=== PATIENT | male | born 1945 | race Two or more races ===

== ENCOUNTER 2024-02-01 19:36 | Inpatient (IN) | payer MEDICARE, MEDICAID, SELFPAY ==
[2024-02-01 19:37] VITALS: BMI 26.5
--- NOTE | 2024-02-01 19:40 | EKG_ITS ---
[facility] Test Date: 2024-02-01 Pat Name: MIK MONAE Department: Room: - Gender: Male Reflow Operator: : 1945 Requested By: Tremaine Jacobs Order Number: [id number] Reading MD: Tremaine Jacobs Measurements Intervals [place] Rate: 71 P: 30 SD: 161 QRS: -37 QRSD: 87 T: 64 QT: 381 QTc: 414 Interpretive Statements SINUS RHYTHM MARKED LEFT AXIS DEVIATION [QRS AXIS < -30] PATTERN CONSISTENT WITH PULMONARY DISEASE NONSPECIFIC T-WAVE ABNORMALITY Compared to ECG 09/14/2023 13:06:49 Ventricular premature complex(es) no longer present Intraventricular conduction delay no longer present T-wave abnormality still present /store/S0/[id number]/ecg/[id number].pdf
[2024-02-01 20:12] VITALS: BP 169/92; PULSE 76; RESP 18; TEMP 37; O2SAT 96
--- NOTE | 2024-02-01 20:34 | PC.NURSE ---
PT TO ROOM 18 AT THIS TIME, ASSUMED CARE.
--- NOTE | 2024-02-01 21:07 | EDNOTE_ITS ---
Altered Mental Status RME/HPI General Chief Complaint: Altered Mental Status Stated Complaint: AMS X 2DAYS Time Seen by Provider: 02/01/24 21:06 Arrival date/time: 02/01/24 19:36 RME / HPI RME / HPI narrative: DR. VALDEZ MAIN ED EVALUATION: 78 year old male presents to the Emergency Department with complaint of altered mental status; patient is delusional since yesterday and worse today. Unsure if patient fell today. Patient is restless and taking jiberish. Patient was talking to somebody in his imagination and he was seeing things that were not there. Denies any of the following: nausea, vomiting, diarrhea, fevers, chills, sweating, headache, chest pain, abdominal pain, UTI symptoms, cough, shortness of breath, or any other symptoms at this time. Galen, the patient's son, wants the patient placed in a [facility]. PMHx: Hypertension, hypercholesterolemia, Diabetes Mellitus Type 2, GERD. History of chronic renal failure but patient refuses to go to dialysis. History of right leg DVT and on Plavix. Social Hx: No tobacco, alcohol, or substance use. PCP is at [facility]. Code Status: DNR, DNI Related Data Home Medications ?Medication ?Instructions ?Recorded ?Confirmed atorvastatin 40 mg tablet 40 mg PO QPM 01/19/19 04/15/22 losartan 50 mg tablet 50 mg PO QDAY 01/19/19 04/15/22 sitagliptin phosphate 50 1 tab PO BID 01/19/19 04/15/22 mg-metformin 1,000 mg tablet (Marlisa) amlodipine 10 mg tablet 10 mg PO QDAY 08/12/20 04/15/22 clopidogrel 75 mg tablet 75 mg PO QDAY 08/12/20 04/15/22 furosemide 40 mg tablet 40 mg PO BID 08/12/20 08/19/20 gemfibrozil 600 mg tablet 600 mg PO BID 08/12/20 08/19/20 metoprolol succinate 25 mg capsule 25 mg PO QDAY 08/12/20 04/15/22 sprinkle, ext. release 24 hr omeprazole 20 mg capsule,delayed 20 mg PO QDAY 08/12/20 04/15/22 release insulin aspart U-100 100 unit/mL 10 unit subcut TID 08/17/20 04/15/22 (3 mL) subcutaneous pen (Novolog FlexPen U-100 Insulin aspart) tamsulosin 0.4 mg capsule 0.4 mg PO QHS 08/17/20 04/15/22 donepezil 10 mg tablet 10 mg PO QDAY 04/15/22 04/15/22 torsemide 20 mg tablet 20 mg PO QAM 04/15/22 04/15/22 Allergies Allergy/AdvReac Type Severity Reaction Status Date / Time No Known Allergies Allergy Verified 09/14/23 12:12 Review of Systems Review of Systems Systems Reviewed: All systems reviewed, normal except as documented ROS Unobtainable: unobtainable due to mental status Past Medical History Past Medical History CARDIAC: Positive Cardiac Disorders, Hypercholesterolemia and Hypertension ENDOCRINE: Positive Diabetes Mellitus Type 2 Social History SMOKING STATUS: Never smoker SUBSTANCE USE: does not use ALCOHOL: Never ED Exam Narrative Physical exam: GEN. APPEARANCE: Patient is disoriented x3 he does not even recognize his son. When I asked him who this man is, son, he said I do not know . Seems under no distress. VITALS: All vitals were reviewed and the pulse ox is 96% on room air, which is normal according to my interpretation. HEENT: Normocephalic, atraumatic and nontender. Pupils are equal and reactive to light and accommodation. Oral mucosa are moist. NECK: Supple, nontender, no meningismus, no JVD. CHEST: Nontender on palpation, no deformity and no crepitus. CARDIOVASCULAR: Heart regular rhythm no murmur or gallop rub or extra beats; not tachycardic. LUNGS: Clear to auscultation bilaterally with symmetrical chest rise. No labo ring tachypnea or wheezing. No intercostal subcostal retraction. No rales and no rhonchi. ABDOMEN: Soft, flat, nontender at all, no guarding or rebound tenderness. There are no abnormal masses palpated. No pulsatile masses or bruits. Active and normal bowel sounds. GENITALIA: Not examined. RECTAL EXAM: Not done. EXTREMITIES: Nontender. No edema. No cyanosis. Patient is able to move all 4 extremities well. SKIN: Warm and dry, no rashes noted. MUSCULOSKELETAL: No lumbar or midline bony tenderness. There is no CVA tenderness. No paraspinal muscle spasm or tenderness. NEURO: Patient is disoriented x3 he does not even recognize his son. Course Quality Measures none Orders Category Date Time Status Blood glucose [Bedside Blood Glucose] NOW Care 02/01/24 19:40 Active EKG (ED ONLY) *Do not use* NOW Care 02/01/24 19:[address] head/brain wo con Stat Exams 02/01/24 21:29 Completed EKG (ED Only) Stat Exams 02/01/24 19:40 Draft Ammonia Stat Lab 02/01/24 22:15 Completed B-Type Natriuretic Peptide Stat Lab 02/01/24 22:15 Completed Beta Hydroxybutyrate Stat Lab 02/01/24 22:15 Completed CBC Stat Lab 02/01/24 22:15 Completed Comprehensive Metabolic Panel Stat Lab 02/01/24 22:15 Completed Troponin I Stat Lab 02/01/24 22:15 Completed UA, C/S IF [Urinalysis, C/S if Indicated] Stat Lab 02/02/24 01:11 Completed VBG [Venous Blood Gas] Stat Lab 02/01/24 22:15 Completed Insulin Regular Med 02/01/24 23:11 Discontinued 15 unit IV X1 ONE Sodium Chloride 0.9% 1000 ml [Ns] 1,000 ml Med 02/01/24 21:40 Discontinued IV 999 mls/hr cloNIDine HCL [Catapres] Med 02/01/24 23:00 Discontinued 0.2 mg PO X1 ONE Vital Signs Vital signs: Vital Signs Temperature 98.6 F 02/01/24 20:12 Pulse Rate 76 02/01/24 20:12 Respiratory Rate 18 02/01/24 20:12 Blood Pressure 169/92 H 02/01/24 20:12 Pulse Oximetry (%) 96 02/01/24 20:12 Oxygen Delivery Method Room Air 02/01/24 20:12 Procedures -ED EKG Interpretation #1: Date of EK02/01/24 Rate: 71 Interpretation: Interpreted by me EKG Impression: Normal sinus rhythm, [place] deviation, No ectopy, Normal intervals and Non-specific ST-T Additional EKG comment: Possible old inferior wall MT. Possible old anteroseptal wall MT. Left axis deviation. Altered Mental Status MDM Narrative MDM Narrative:: I, Taylor Muñoz, am scribing for and in the presence of Dr. Valdez. Patient comes in brought in by his son Galen, who takes care of him at home. The son says that he was very delusional since yesterday and it got much worse today: He was talking to somebody in his imagination and he was seeing things that were not there. The son says that he cannot take care of him anymore at home and he wants him and I m[facility]p placement. The son says that he is DNR and DNI. He says that the father was very restless and talking gibberish at home. He denies any nausea vomiting or diarrhea, fever chills or sweating, patient denies any headache chest pain or abdominal pain, any UTI symptoms, coughing or shortness of breath. Patient is disoriented x 3 he does not even recognize his son: When I asked him who this man is, he said I do not know. Upon arrival his blood sugar was 542 by the triage PA but no orders were put in. Therefore I ordered a cardiac workup limited, CT of the head and also ammonia level. I started hydrating him with a liter of normal saline IV wide open. Once we receive his lab work, I will give him some insulin also. By looking at his old records, patient was here last on 10/16/2023 when his BUN and creatinine were high at 41 and 3.4. Also his PTH was high almost 200 and he was discharged home. The son says that he does not want him to go into dialysis because the patient refuses to. Again, patient is DNR and DNI; he does have chronic renal failure but patient refuses to go to dialysis. At 11:12 PM, patient's potassium came back at 4.6 therefore I gave him 15 units of regular insulin IV. I will not give him any more than 1 L of fluids because his blood pressure shot up to 221/101 with a heart rate of 64 at 11 PM. I ordered clonidine 0.2 mg p.o. Patient continues in chronic renal failure now with a BUN of 41 and a creatinine of 4.4, which is worse than 3 months ago when his creatinine was 3.4. Provider Notation: Although this document has been carefully reviewed, there may still be some phonetic and other typographical errors. These error are purely grammatical due to imperfections in the software program and should not be construed in any way to compromise the substance of the patient's medical care during this visit. Patient data External records reviewed:: [facility] previous records (Reviewed last ED visit dated 09/14/23, discharged with the following: Headache.) Clinical information provided by:: family (son) Social determinants that could affect healthcare access:: none Patient has the following chronic illnesses:: Hypertension, hypercholesterolemia, Diabetes Mellitus Type 2, GERD. History of chronic renal failure but patient refuses to go to dialysis. History of right leg DVT and on Plavix. Code Status: DNR, DNI How is presenting disease/condition affected by chronic disease/condition?: exacerbated by Evaluation data The following diagnostics were reviewed and interpreted by me:: lab results, radiology exam(s) and EKG tracing(s) Lab and/or radiology exams considered but not ordered:: none Interpretation Summary: See above under MDM narrative. ----- [place] [facility] Report Signed Patient: MIK MONAE Record#: [id number] Birthdate: 1945 Age/Sex: 78 / M Location: [facility] Attending Dr: Ordering Physician: Michael Valdez MD Date of Service: 02/01/24 Procedure(s): CT head/brain wo con Accession Number(s): [id number] cc: Michael Valdez MD; Kvng Gardiner MD; Temporary Provider,ED ~ Examination: CT brain head without contrast. 2-D sagittal coronal reconstructions Date and time of exam:February 01, 2024 2146 hrs. Comparison September 14, 2023 Indications: Onset altered mental status beginning 2 days ago, after fall with injury to the head, history acute subacute subdural hematoma peripheral to the left frontal lobe on CT brain scan September 14, 2023 CTDI: vol (mGy):47.9 DLP: (mGycm):922 Technique: Multiple CT axial sections of the brain have been obtained, 5 mm slice thickness. Contrast has not been administered. 2-D sagittal, coronal reconstructions have been obtained Low dose protocols were performed. One or more of the following dose reduction techniques were used; automated exposure control, adjustment of the mA and/or KV according to patient size, use of iterative reconstruction technique. 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 Dictated By: Kvng Gardiner MD Signed By: <Electronically signed by Kvng Gardiner MD in OV> 02/01/246 Medications / Prescriptions Medications or Prescriptions considered but not ordered:: none Medication administrations:: Medication Administration History Discontinued Medications Clonidine (Clonidine Hcl 0.1 Mg Tablet) 0.2 mg PO X1 ONE Stop: 02/01/24 23:01 Last Admin: 02/01/24 23:08 Dose: 0.2 mg Documented By: KG Sodium Chloride (Ns) 1,000 mls @ 999 mls/hr IV .Q1H1M ONE Stop: 02/01/24 22:40 Last Infusion: 02/01/24 23:47 Dose: Infused Documented By: Admin: 02/01/24 22:39 Dose: 999 mls/hr Documented By: KG Insulin Human Regular (Insulin Hum Regular 1 Unit/0.01 Ml (Per Unit)) 15 unit IV X1 ONE Stop: 02/01/24 23:12 Last Admin: 02/01/24 23:32 Dose: 15 unit Documented By: KG Co-signed By: EE see above if any Consultations Consultation(s) initiated? (list below): No Diagnosis Differential diagnosis altered mental status: altered mental status and other (CVA, intracranial bleed, UTI, hyperglycemi, DKA) Most likely diagnosis given after review of the tests above:: Hyperglycemia Admission Indicated Admission indicated?: not indicated Admission Request Was there a request for admission?: No Disposition Plan Disposition Plan: Discharge (Signed out to the next oncoming provider at 0600 pending bilingual social worker consultation.) Discharge Attestation Discharge Attestation: The patient and all family members were given an opportunity to ask questions and understood the discharge instructions. Discharge instructions specifically effects, indications for sooner follow up or return to the emergency department, and the expected course of current diagnosis. Patient condition: Stable Discharge Plan Prescriptions/Referrals Prescriptions/Med Rec: No Action insulin aspart U-100 [Novolog FlexPen U-100 Insulin] 100 unit/mL (3 mL) insulin pen 10 unit subcut TID tamsulosin 0.4 mg capsule 0.4 mg PO QHS furosemide 40 mg tablet 40 mg PO BID metoprolol succinate 25 mg capsule,sprinkle,ER 24hr 25 mg PO QDAY clopidogrel 75 mg tablet 75 mg PO QDAY omeprazole 20 mg capsule,delayed release(DR/EC) 20 mg PO QDAY gemfibrozil 600 mg tablet 600 mg PO BID amlodipine 10 mg tablet 10 mg PO QDAY donepezil 10 mg tablet 10 mg PO QDAY torsemide 20 mg tablet 20 mg PO QAM losartan 50 mg Tablet 50 mg PO QDAY atorvastatin 40 mg Tablet 40 mg PO QPM Janumet 50-1,000 mg Tablet 1 tab PO BID Referrals: Temporary Provider,ED [Physician] - In 1 week Problem List Clinical Impression: Hyperglycemia, Uncontrolled hypertension Patient/Caregiver Discharge Instructions Print Language: Liberian
--- NOTE | 2024-02-01 21:18 | PC.NURSE ---
Dr. Valdez at the bedside.
--- NOTE | 2024-02-01 21:29 | XR_ITS ---
Examination: CT brain head without contrast. 2-D sagittal coronal reconstructions Date and time of exam:February 01, 2024 2146 hrs. Comparison September 14, 2023 Indications: Onset altered mental status beginning 2 days ago, after fall with injury to the head, history acute subacute subdural hematoma peripheral to the left frontal lobe on CT brain scan September 14, 2023 CTDI: vol (mGy):47.9 DLP: (mGycm):922 Technique: Multiple CT axial sections of the brain have been obtained, 5 mm slice thickness. Contrast has not been administered. 2-D sagittal, coronal reconstructions have been obtained Low dose protocols were performed. One or more of the following dose reduction techniques were used; automated exposure control, adjustment of the mA and/or KV according to patient size, use of iterative reconstruction technique. 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
--- NOTE | 2024-02-01 21:38 | PC.NURSE ---
Dr. Shetty at the bedside.
[2024-02-01 22:20] VITALS: BP 221/94; PULSE 65; RESP 17; O2SAT 100
[2024-02-01 22:22] LABS: Base Excess, Venous 1 (-3-3); O2 Saturation, Venous 86 % (96-97); PCO2, Venous 38 mmHg (36-56); PO2, Venous 47 mmHg (15-58); pH, Venous 7.43 (7.33-7.66)
[2024-02-01 22:26] LABS: Basophils # (Auto) 0.1 Thou/mm3 (0.0-0.2); Basophils % (Auto) 1 % (0-2.5); Eosinophils # (Auto) 0.3 Thou/mm3 (0.0-0.5); Eosinophils % (Auto) 4 % (0-10); Hematocrit 35.1 % (41.0-53.0); Hemoglobin 12.1 g/dL (13.5-16.0); Immature Granulocytes % (Auto) 0 % (0-0); Immature Granulocytes Auto 0.03 Thou/mm3 (0.00-0.00); Lymphocytes # (Auto) 1.3 Thou/mm3 (1.0-4.8); Lymphocytes % (Auto) 17 % (10-50); Mean Corpuscular HGB Conc 34.5 g/dl (31.0-37.0); Mean Corpuscular Hemoglobin 28.7 pg (25.0-35.0); Mean Corpuscular Volume 83 fL (80-100); Monocytes # (Auto) 0.8 Thou/mm3 (0.0-0.8); Monocytes % (Auto) 10 % (0-12); Neutrophils # (Auto) 5.4 Thou/mm3 (1.8-7.7); Neutrophils % (Auto) 69 % (37-80); Nucleated Red Blood Cell % 0 /100 WBC (0); Platelet Count 199 Thou/mm3 (140-440); RDW Standard Deviation 41.4 fL (35.1-43.9); Red Blood Count 4.21 Miln/mm3 (4.50-5.90); White Blood Count 7.9 Thou/mm3 (3.8-10.6)
[2024-02-01] MEDS: SODIUM CHLORIDE 0.9% 1000 ML 1,000 ML 999 ML IV (22:39)
[2024-02-01 22:41] LABS: Beta Hydroxybutyrate 0.1 mmol/L (<0.6)
[2024-02-01 23:00] LABS: Alanine Aminotransferase 7 U/L (10-49); Albumin, Serum 4.3 gm/dL (3.4-4.8); Albumin/Globulin Ratio 1.7 (1.2-2.2); Alkaline Phosphatase 105 U/L (46-116); Anion Gap 7 (7-16); Aspartate Amino Transferase 18 U/L (0-34); BUN/Creatinine Ratio 9 Ratio (12-20); Bilirubin,Total 0.4 mg/dL (0.3-1.2); Blood Urea Nitrogen 41 mg/dL (9-23); Calcium 11.8 mg/dL (8.3-10.6); Calcium (Corrected) 11.8 mg/dL (8.5-10.1); Carbon Dioxide 24.7 mMol/L (20.0-31.0); Chloride 100 mMol/L (98-107); Creatinine (Component) 4.4 mg/dL (0.6-1.3); Estimated Creatinine Clearance 11.2 mL/min (>60); Globulin 2.5 gm/dL (2.3-3.5); Osmolality,Calculated 296 (275-295); Potassium 4.6 mMol/L (3.4-5.1); Sodium 132 mMol/L (136-145); Total Protein 6.8 gm/dL (5.7-8.2); Troponin I < 0.020 ng/mL (0.0-0.045); eGFR 13 See Note
--- NOTE | 2024-02-01 23:00 | PC.NURSE ---
Dr. Valdez notified of blood pressure reading of 225/101 at this time.
[2024-02-01 23:01] LABS: Ammonia < 10 uMol/L (11-32)
[2024-02-01 23:03] LABS: Glucose 499 mg/dL (74-106)
[2024-02-01 23:08] VITALS: BP 224/90; PULSE 67
[2024-02-01] MEDS: cloNIDine HCL 0.1 MG TABLET 0.2 MG PO (23:08)
[2024-02-01 23:09] LABS: B-Type Natriuretic Peptide 63 pg/mL (0-100)
[2024-02-01] MEDS: INSULIN HUM REGULAR 1 UNIT/0.01 ML (PER UNIT) 15 UNIT IV (23:32)
[2024-02-01 23:37] VITALS: BP 228/106; PULSE 76; RESP 18; O2SAT 97
[2024-02-02] VITALS (23 sets, daily range): BP systolic 111–233; BP diastolic 63–99; PULSE 38–98; RESP 12–22; TEMP 36.1–37.2; O2SAT 95–100
[2024-02-02 01:27] LABS: Collection Type, Urine Clean Catch
[2024-02-02 01:47] LABS: Bilirubin,Urine Negative (Negative); Blood,Urine 1+ (Negative); Clarity,Urine Clear (Clear/Hazy); Color,Urine Colorless (Lt Yel-Yel); Culture Indicated,Urine Not Indicated; Glucose, Urine 4+ (Negative); Hyaline Casts,Urine < 1 /hpf (0-1); Ketones,Urine Negative (Negative); Leukocyte Esterase,Urine Negative (Negative); Nitrite,Urine Negative (Negative); PH,Urine 7.5 (5.0-7.0); Protein,Urine 2+ (Neg - Trace); RBC,Urine 1 /hpf (0-3); Specific Gravity,Urine 1.011 (1.001-1.035); Squamous Epithelial Cell,Urine < 1 /hpf (0-5); Urobilinogen,Urine Negative mg/dL (0.0-1.0); WBC,Urine 1 /hpf (0-5)
[2024-02-02] MEDS: LORazepam 0.5 MG TABLET 1 MG PO (02:31)
--- NOTE | 2024-02-02 07:02 | PC.NURSE ---
Dr. Hernadez informed that pt's blood pressure has gone back up to 206/90.
--- NOTE | 2024-02-02 07:13 | EDNOTE_ITS ---
Emergency Room Addendum Addendum Narrative: 0600: Care assumed from Dr. Valdez, the previous shift emergency physician. Past medical, surgical, social and family history reviewed. Vitals and home medications reviewed. I will assume the care of the patient at this time, pending high school social studies teacher consultation. Please refer to the emergency department record for history and examination from initial visit.? Nursing notes reviewed by me. Vital signs reviewed by me. [place] medical records reviewed by me. Per EMR review, patients son states he is no longer able to care for the patient at home and is requesting patient to be placed in to a retirement facility. The son states patient is DNR and DNI. 0740: Notified by our secondary social studies teacher that patient is unable to be placed from the ED due to insurance. Patient remains clinically stable throughout the emergency department visit. We reviewed all the results, analysis, and treatment plans. Patient will be discharged home.
[2024-02-02] MEDS: ENALAPRILAT INJ 1.25 MG/ML VIAL IVP ×2 (07:29→15:00)
--- NOTE | 2024-02-02 11:20 | PC.NURSE ---
MD made aware pt BP is trending up. Despite previous interventions.
[2024-02-02] MEDS: cloNIDine HCL 0.1 MG TABLET 0.2 MG PO (11:23)
--- NOTE | 2024-02-02 13:25 | PC.NURSE ---
made aware pt HR is dipping down into the high 30s
--- NOTE | 2024-02-02 18:27 | PC.CC ---
Pt Kamron Grullon is an 78 yr old male to ED for AMS x2 days. Pt kept in ED for SS consult as pts son Galen Grullon [phone], is requesting SNF placement, stating he is unable to care for pt any longer in his home. Upon review of pts medical coverage pt will require a 3 midnight inpt stay. [employer] has provided update to ED attending Dr. Hernadez. Per attending he will review chart and present. 1014-Call from pts daughter Yanna Grullon [phone]. [employer] [facility] provided update, that ED attending will be making contact with pts primary provider Dr. Bedoya. Per pts daughter pt has declined over last few weeks and pts son is unable to care for him in the home, due to his own work schedule. [employer] informed pts daughter that update will be provided. [employer] [facility] met with pts son Galen Grullon [phone] at bedside. Pts son has been updated that pt will be admitted to hospitalist services. Per pts son, pt has been placed at [facility] in the past with a positive experience and is agreeable with pt to return. [employer] [facility] informed Galen that initial request will be presented as short term for PT, allowing SNF to determine if pt will need longer or penitentiary placement. Pts son expressed understanding and is agreeable to this. 1812-[employer] provided update to pts daughter Yanna, who is also in agreement with plan.
--- NOTE | 2024-02-02 19:22 | ESCONSULT_ITS ---
History of Present Illness Data of Consult Consult date: 02/02/24 Primary Care Provider: CHRISTINA Gay Consult Narrative Reason for consult: NIC on CKD IV History of present illness: Informant son Mr. Lundy is a 78-year-old gentleman with extensive past medical history of hypertension, diabetes, dyslipidemia, acid reflux, CKD stage IV (10/2023 GFR 18-has been declining dialysis) presented to the emergency department brought by the son with altered mental status and not feeling well for the last 48 hours. Patient has been very restless and altered that I got the information from his son on the phone. Apparently patient's appetite has been on the lower side. Denies any fever or chills. No nausea, vomiting. Denies any shortness of breath. Home medications included amlodipine, atorvastatin, Plavix, donepezil, furosemide, gemfibrozil, Lantus, losartan, metoprolol, Janumet, tamsulosin (not sure if he is taking) PCP is at [facility]. In the emergency department blood pressure 176/79, heart rate 52. Blood sugar 226. WBC 7.6, hemoglobin 12.4, platelets 165.Sodium 132, potassium 4.6, bicarbonate 24.7, BUN 41, creatinine 4.4, GFR 13, blood sugar 499, calcium 11.8, LFTs normal, ammonia level negative. Albumin 4.3, beta hydroxy 0.1, last PTH in October was 198. Urinalysis shows 2+ protein/4+ glucose. Head CT was negative for any stroke. Patient was Started on IV fluids and renal consultation requested for NIC by ER provider. cc:: cc: Review of Systems Review of Systems Narrative Review of Systems: Limited due to his mental status. Past Medical History Past Medical History CARDIAC: Positive Cardiac Disorders, Hypercholesterolemia and Hypertension; Negative Congestive Heart Failure RESPIRATORY: Negative Chronic Obstructive Pulmonary Disease (COPD) or Asthma GENITOURINARY: Negative Renal Disease ENDOCRINE: Positive Diabetes Mellitus Type 2; Negative Diabetes Mellitus Type 1 HEMATOLOGIC: Negative Sickle Cell Disease Social History SMOKING STATUS: Never smoker SUBSTANCE USE: does not use Meds Home Medications and Allergies Home Medications ?Medication ?Instructions ?Recorded ?Confirmed ?Type atorvastatin 40 mg tablet 40 mg PO QPM 01/19/19 04/15/22 History losartan 50 mg tablet 50 mg PO QDAY 01/19/19 04/15/22 History sitagliptin phosphate 50 1 tab PO BID 01/19/19 04/15/22 History mg-metformin 1,000 mg tablet () amlodipine 10 mg tablet 10 mg PO QDAY 08/12/20 04/15/22 History clopidogrel 75 mg tablet 75 mg PO QDAY 08/12/20 04/15/22 History furosemide 40 mg tablet 40 mg PO BID 08/12/20 08/19/20 History gemfibrozil 600 mg tablet 600 mg PO BID 08/12/20 08/19/20 History metoprolol succinate 25 mg capsule 25 mg PO QDAY 08/12/20 04/15/22 History sprinkle, ext. release 24 hr omeprazole 20 mg capsule,delayed 20 mg PO QDAY 08/12/20 04/15/22 History release insulin aspart U-100 100 unit/mL 10 unit subcut TID 08/17/20 04/15/22 History (3 mL) subcutaneous pen (Novolog FlexPen U-100 Insulin aspart) tamsulosin 0.4 mg capsule 0.4 mg PO QHS 08/17/20 04/15/22 History donepezil 10 mg tablet 10 mg PO QDAY 04/15/22 04/15/22 History torsemide 20 mg tablet 20 mg PO QAM 04/15/22 04/15/22 History Allergies Allergy/AdvReac Type Severity Reaction Status Date / Time No Known Allergies Allergy Verified 09/14/23 12:12 Exam Vital Signs Temp Pulse Resp BP Pulse Ox O2 Del Method O2 Flow Rate 36.3 C 52 L 17 176/79 H 100 Nasal Cannula 2 02/02/24 18:14 02/02/24 19:14 02/02/24 19:14 02/02/24 19:14 02/02/24 19:14 02/02/24 19:14 02/02/24 19:14 Narrative Exam GENERAL APPEARANCE: Elderly gentleman currently seen in the emergency department. Sick looking. NECK: Neck supple, no JVD or bruit CARDIOVASCULAR: Heart regular, no murmurs LUNGS/CHEST: Chest clear to auscultation. No rales, rhonchi, wheezing ABDOMEN: Soft, nontender, nondistended. No masses. Normal bowel sounds. EXTREMITIES: No edema, clubbing or cyanosis. SKIN: Skin exam normal without any rashes MUSCULOSKELETAL in bed LYMPHATICS: No lymphadenopathy noted NEUROLOGICAL : patient is altered. Results Labs 02/02/24 19:38 02/02/24 19:38 Labs: Short CBC 02/01/24 Range/Units 22:15 WBC 7.9 (3.8-10.6) Thou/mm3 Hgb 12.1 L (13.5-16.0) g/dL Hct 35.1 L (41.0-53.0) % Plt Count 199 (140-440) Thou/mm3 BMP 02/01/24 22:15 Sodium 132 L Potassium 4.6 Chloride 100 Carbon Dioxide 24.7 BUN 41 H Creatinine 4.4 H* Glucose 499 H* Calcium 11.8 H Cardiac Enzymes 02/01/24 Range/Units 22:15 Troponin I < 0.020 (0.0-0.045) ng/mL Liver Function 02/01/24 Range/Units 22:15 Total Bilirubin 0.4 (0.3-1.2) mg/dL AST 18 (0-34) U/L ALT 7 L (10-49) U/L Alkaline Phosphatase 105 (46-116) U/L Albumin 4.3 (3.4-4.8) gm/dL Urine 02/02/24 Range/Units 01:11 Urine Color Colorless A (Lt Yel-Yel) Urine Clarity Clear (Clear/Hazy) Urine pH 7.5 H (5.0-7.0) Ur Specific [place] 1.011 (1.001-1.035) Urine Protein 2+ A (Neg - Trace) Urine Glucose (UA) 4+ A (Negative) ABG Interpretation ABG results: 02/01/24 22:15 VBG pH 7.43 VBG pCO2 38 VBG pO2 47 VBG Base Excess 1 Assessment & Plan Assessment and plan (1) Acute renal failure (ARF): Status: Acute Assessment and plan: Acute renal failure secondary to prerenal azotemia. Secondary to decreased p.o. intake/severe hypercalcemia. Agree with continuing on IV fluids. 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 Had a long conversation with son Galen over the phone-patient apparently has been declining dialysis. Son wants him to be DNR, comfort care and rehab placement. He cannot take care of him at home. Conveyed the same to the ER provider. No need for emergency dialysis. Will repeat labs. (2) Altered mental status: Status: Acute Assessment and plan: Secondary to metabolic encephalopathy/hypercalcemia. (3) Hypercalcemia: Status: Acute Assessment and plan: Secondary to dehydration. Will continue with fluids. Check PTH, vitamin D levels (4) Hypertension: Status: Acute Assessment and plan: Hypertension-add amlodipine Hold losartan (5) Diabetes: Status: Acute Assessment and plan: Accu-Cheks, sliding scale. Hold off on metformin (6) Hyperlipidemia: Status: Acute Assessment and plan: On Lipitor Additional Assessment & Plan Additional Plan: Thank you Dr. Valdez for allowing me to participate in the care of Mr. Lundy
[2024-02-02 19:50] LABS: Basophils # (Auto) 0.1 Thou/mm3 (0.0-0.2); Basophils % (Auto) 1 % (0-2.5); Eosinophils # (Auto) 0.4 Thou/mm3 (0.0-0.5); Eosinophils % (Auto) 5 % (0-10); Hematocrit 36.7 % (41.0-53.0); Hemoglobin 12.4 g/dL (13.5-16.0); Immature Granulocytes % (Auto) 0 % (0-0); Immature Granulocytes Auto 0.03 Thou/mm3 (0.00-0.00); Lymphocytes # (Auto) 1.2 Thou/mm3 (1.0-4.8); Lymphocytes % (Auto) 15 % (10-50); Mean Corpuscular HGB Conc 33.8 g/dl (31.0-37.0); Mean Corpuscular Hemoglobin 28.4 pg (25.0-35.0); Mean Corpuscular Volume 84 fL (80-100); Monocytes # (Auto) 0.6 Thou/mm3 (0.0-0.8); Monocytes % (Auto) 8 % (0-12); Neutrophils # (Auto) 5.3 Thou/mm3 (1.8-7.7); Neutrophils % (Auto) 71 % (37-80); Nucleated Red Blood Cell % 0 /100 WBC (0); Platelet Count 165 Thou/mm3 (140-440); RDW Standard Deviation 42.8 fL (35.1-43.9); Red Blood Count 4.36 Miln/mm3 (4.50-5.90); White Blood Count 7.6 Thou/mm3 (3.8-10.6)
[2024-02-02 20:07] LABS: Partial Thromboplastin Time 26.4 Seconds (22.0-36.0)
--- NOTE | 2024-02-02 20:12 | PC.NURSE ---
S/T Arianna @ [facility]@ [phone], she is currently calling different SNF locations to admit pt and will follow-up first thing in the morning to, S/T son (Galen), @ [phone] who was requesting to have pt admitted to SNF because pt does not have resources at home to care for pt appropriately tonight and is requesting that he be admitted to SNF. Son was unaware of hospice care when I spoke to him and follow-up is necessary for further education about situation. S/T ER physician and he is aware
--- NOTE | 2024-02-02 20:26 | EDNOTE_ITS ---
Emergency Room Addendum Addendum Narrative: I took over the care from Dr. Hernadez at 6 PM on 02/02/2024, see his notes for complete H&P and ED course. I discussed the case with our hospitalist. About the presentation and exam and diagnostics and treatments here. And need of further care in the hospital. Wi ll accept the patient for main diagnoses of sepsis. During my watch, the patient remained stable. Harry Page MD
[2024-02-02 20:34] LABS: Alanine Aminotransferase < 7 U/L (10-49); Albumin/Globulin Ratio 1.7 (1.2-2.2); Alkaline Phosphatase 75 U/L (46-116); Anion Gap 5 (7-16); Aspartate Amino Transferase 13 U/L (0-34); BUN/Creatinine Ratio 9 Ratio (12-20); Bilirubin,Total 0.5 mg/dL (0.3-1.2); Blood Urea Nitrogen 37 mg/dL (9-23); Calcium 11.1 mg/dL (8.3-10.6); Calcium (Corrected) 11.1 mg/dL (8.5-10.1); Carbon Dioxide 27.1 mMol/L (20.0-31.0); Chloride 105 mMol/L (98-107); Creatinine (Component) 3.9 mg/dL (0.6-1.3); Estimated Creatinine Clearance 12.6 mL/min (>60); Globulin 2.4 gm/dL (2.3-3.5); Glucose 238 mg/dL (74-106); Magnesium 1.6 mg/dL (1.6-2.6); Osmolality,Calculated 290 (275-295); Potassium 5.1 mMol/L (3.4-5.1); Sodium 137 mMol/L (136-145); Thyroid Stimulating Hormone 3.53 uIU/mL (0.55-4.78); Total Protein 6.4 gm/dL (5.7-8.2); eGFR 15 See Note
[2024-02-02 20:44] LABS: Beta Hydroxybutyrate 1.1 mmol/L (<0.6)
--- NOTE | 2024-02-02 22:28 | XR_ITS ---
Examination: AP chest single view Technique: AP portable supine chest single view Exam date and time: February 02, 2024 10:38 PM Indications: Altered mental status today, history CHF diabetes hypertension. Findings: Normal heart size Subsegmental atelectasis in the right lower lung zone No pneumonia or pulmonary edema The osseous structures are intact Impression: Mild subsegmental atelectasis right base
--- NOTE | 2024-02-02 22:46 | PD.RESHP ---
Documentation for date of: 02/02/24 HPI History of Present Illness History of present illness: CC: altered Patient is an 78-year-old male with a past medical history of diabetes mellitus type 2 insulin dependent, hyperlipidemia, possible history of CHF on metoprolol, CKD stage IV declining dialysis (follows nephrology, Dr. Bedoya), possible history of dementia on Donepezil, and history of DVT on Plavix. Patient presented to the emergency room with alter mental status on 02/01/2024. Limited history as no family members were in patient's room and patient was unable to provide history. Per chart review increasing altered mental status 2023 with delusions and nonsensical responses. No history provided on whether patient fell. Poor historian. Admitted on 02/02/2024 for altered mental status and acute NIC on chronic CKD. ER course: Vitals (02/01/2024): Temperature 98.6, HR 76, RR 18, BP 169/92 SpO2 96% RA CBC (02/01/2024): WBC 7.9 hemoglobin 12.1, hematocrit 35.1, platelets 199, MCV 83 CBC (02/02/2024) WBC 7.6 hemoglobin 12.4, hematocrit 36.7, MCV 84 VBG 7.43, pCO2 38, pO2 47, CMP (02/01/2024): Na 132, K 4.6, BUN 41, Cr 4.4, GFR 13, BUN/Cr 9 CMP (02/02/2024): Na 137, K 5.1, BUN 37 H, Cr 3.9, CrCl 12.6, GFR 9 Anion gap 7, 5 Glucose 499-->(02/02/24)238 Beta hydroxyutyrate 0.1 Correct Ca (02/01/2024) 11.8 PTH () 198.9 UA: negative Utox negative Head CT (02/03/2024): Small bifrontal chronic subdural hydromas, right frontal encephalomalacia, Right basal ganglia old infart, NO acute hemorrhage mass effect or midline shift. Brain MRI to rule out ischemic changes. Cxr (02/02/2024): Mild subsegmental atelectasis right base Medication: Lorazepam, Enalaprilate 1.25 mg IVP X 1, Clonidine 0.2 mg PO PMH: DM type 2 insulin dependent HLD CKD IV, GFR 18 (10/2023) declined dialysis per Dr. Bedoya hx of DVT on plavix CHF (?) Dementia (?) Previous Stroke (?) Home Medication: *medication reconciliation needed, no family at bedside*, information per chart review Plavix Amlodipine Atorvastatin Furosemide Lantus Losartan Metoprolol Janumet Tamsulosin Social History: unable to determine, poor historian Allergies: None Code Status: DNR Review of Systems Review of Systems Narrative Review of Systems: General appearance: NO weight change, NO fatigue, NO weakness, NO fever, NO chills, NO night sweats, No cough Skin: NO rash, NO itching, NO sores, NO moles HEENT: NO Trauma, NO nausea, NO vomiting, NO visual changes, NO blurry vision, NO double vision, NO tinnitus, NO vertigo, NO ear discharge, NO rhinorrhea, NO stuffiness, NO sneezing, NO allergy, NO epistaxis. NO Hoarseness, NO sore throat, NO swollen neck. Cardiac: NO Palpitations, NO dyspnea on exertion, NO orthopnea, NO paroxysmal nocturnal dyspnea, NO edema Respiratory: NO Shortness of Breath, NO Wheezing, NO Cough, NO Sputum, NO hemoptysis GI:NO appetite, NO nausea, NO vomiting, NO dysphagia, NO changes in bowel frequency, NO stool color, NO diarrhea, NO constipation, NO hemetemesis, NO hemorrhoids, NO melena, NO hematechezia, NO abdominal pain, NO jaundice Renal: NO frequency, NO hesitancy, NO urgency, NO hematuria, NO nocturia, NO incontinence MSK: NO muscle weakness, NO gout, NO arthritis, NO muscle stiffness Neuro: NO headaches, NO tremors, NO weakness, NO paralysis, NO seizures, NO loss of consciousness, NO numbness. Hem: NO anemia, NO easy bruising/bleeding, NO petechiae, NO purpura Endo: NO heat/cold intolerance, NO excessive sweating, NO polyuria, NO polydipsia, NO polyphagia, NO thyroid problems, NO diabetes Pysch: NO mood, NO anxiety, NO depression Exam Vital Signs Temp Pulse Resp BP Pulse Ox O2 Del Method O2 Flow Rate 97.7 F 50 L 14 205/86 H 100 Nasal Cannula 2 02/02/24 21:43 02/02/24 22:22 02/02/24 22:22 02/02/24 22:22 02/02/24 22:22 02/02/24 22:22 02/02/24 22:22 Narrative Exam General Appearance: Alert & Oriented X2, well-nourished male who is lying in bed in no acute distress HEENT: Skull symmetrical and atraumatic. Conjunctivae pin and moist. Pupils equal, round, reactive to light and accommodation (PERRL). External ear without lesion or discharge. Straight, nares patient, mucosa pink, no discharge. No thyroid nodule appreciated. No cervical lymphadenopathy. Cardio: bradycardia and normal rhythm with S1 and S2 heart sounds. No murmurs or extra heart sounds auscultated. No bruits on carotid auscultation. No peripheral edema or cyanosis. Lungs: Symmetric with good expansion. Chest and back non-tender. Breath sounds vesicular without crackles, wheezing or rhonchi Abdomen: Non-tender, Non-distended, Normal Reactive Bowel Sounds Neuro: Yes Alert, NO cooperative, Yes oriented to person, Yes place, and NO time. Dysarthria. Patient did not follow commands and unable to access motor function. Results: Labs 02/02/24 19:38 02/02/24 19:38 Labs: Short CBC 02/02/24 Range/Units 19:38 WBC 7.6 (3.8-10.6) Thou/mm3 Hgb 12.4 L (13.5-16.0) g/dL Hct 36.7 L (41.0-53.0) % Plt Count 165 D (140-440) Thou/mm3 BMP 02/01/24 02/02/24 22:15 19:38 Sodium 132 L 137 Potassium 4.6 5.1 D Chloride 100 105 Carbon Dioxide 24.7 27.1 BUN 41 H 37 H Creatinine 4.4 H* 3.9 H D Glucose 499 H* 238 H D Calcium 11.8 H 11.1 H Cardiac Enzymes 02/01/24 Range/Units 22:15 Troponin I < 0.020 (0.0-0.045) ng/mL Liver Function 02/01/24 02/02/24 Range/Units 22:15 19:38 Total Bilirubin 0.4 0.5 (0.3-1.2) mg/dL AST 18 13 (0-34) U/L ALT 7 L < 7 L (10-49) U/L Alkaline Phosphatase 105 75 D (46-116) U/L Albumin 4.3 4.0 (3.4-4.8) gm/dL Urine 02/02/24 Range/Units 01:11 Urine Color Colorless A (Lt Yel-Yel) Urine Clarity Clear (Clear/Hazy) Urine pH 7.5 H (5.0-7.0) Ur Specific [place] 1.011 (1.001-1.035) Urine Protein 2+ A (Neg - Trace) Urine Glucose (UA) 4+ A (Negative) ABG Interpretation ABG results: 02/01/24 22:15 VBG pH 7.43 VBG pCO2 38 VBG pO2 47 VBG Base Excess 1 Quality Measures Quality Measures none Advance care planning discussed with:: child Medications Home Medications and Allergies Home Medications ?Medication ?Instructions ?Recorded ?Confirmed ?Type atorvastatin 40 mg tablet 40 mg PO QPM 01/19/19 04/15/22 History losartan 50 mg tablet 50 mg PO QDAY 01/19/19 04/15/22 History sitagliptin phosphate 50 1 tab PO BID 01/19/19 04/15/22 History mg-metformin 1,000 mg tablet ([place]) amlodipine 10 mg tablet 10 mg PO QDAY 08/12/20 04/15/22 History clopidogrel 75 mg tablet 75 mg PO QDAY 08/12/20 04/15/22 History furosemide 40 mg tablet 40 mg PO BID 08/12/20 08/19/20 History gemfibrozil 600 mg tablet 600 mg PO BID 08/12/20 08/19/20 History metoprolol succinate 25 mg capsule 25 mg PO QDAY 08/12/20 04/15/22 History sprinkle, ext. release 24 hr omeprazole 20 mg capsule,delayed 20 mg PO QDAY 08/12/20 04/15/22 History release insulin aspart U-100 100 unit/mL 10 unit subcut TID 08/17/20 04/15/22 History (3 mL) subcutaneous pen (Novolog FlexPen U-100 Insulin aspart) tamsulosin 0.4 mg capsule 0.4 mg PO QHS 08/17/20 04/15/22 History donepezil 10 mg tablet 10 mg PO QDAY 04/15/22 04/15/22 History torsemide 20 mg tablet 20 mg PO QAM 04/15/22 04/15/22 History Allergies Allergy/AdvReac Type Severity Reaction Status Date / Time No Known Allergies Allergy Verified 09/14/23 12:12 Visit Medications Acetaminophen (Acetaminophen 325 Mg Tablet) 650 mg PO Q6H PRN PRN Reason: Mild Pain 1-3 or Fever >100.4 Stop: 03/03/24 22:21 Amlodipine Besylate (Amlodipine Besylate 5 Mg Tablet) 10 mg PO QDAY XIOMY Stop: 03/04/24 08:59 Atorvastatin Calcium (Atorvastatin Calcium 20 Mg Tablet) 40 mg PO HS XIOMY Stop: 03/03/24 20:59 Clopidogrel Bisulfate (Clopidogrel Bisulfate 75 Mg Tablet) 75 mg PO QDAY XIOMY Stop: 03/04/24 08:59 Dextrose (Dextrose 50%-Water Inj 50 Ml Syringe) 25 ml IV Q15MIN PRN PRN Reason: BG 50-70 responsive npo pt Stop: 03/03/24 22:36 Dextrose (Dextrose 50%-Water Inj 50 Ml Syringe) 50 ml IV Q15MIN PRN PRN Reason: BG <50 OR BG <70 & pt unresponsive Stop: 03/03/24 22:36 Donepezil HCl (Donepezil Hcl 5 Mg Tablet) 10 mg PO QDAY XIOMY Stop: 03/04/24 08:59 Glucagon (Glucagon Inj 1 Mg Vial) 1 mg IM Q15MIN PRN PRN Reason: BG <70, and no IV access Hydralazine HCl (Hydralazine Hcl 10 Mg Tablet) 50 mg PO TID XIOMY Stop: 03/03/24 22:44 Sodium Chloride (Ns) 1,000 mls @ 150 mls/hr IV .Q6H40M XIOMY Stop: 02/03/24 08:39 Insulin Human Lispro (Insulin Lispro (Admelog) 1 Unit/0.01 Ml Unit) 0 unit SC Q6HR XIOMY; Protocol Stop: 03/04/24 00:00 Pantoprazole Sodium (Pantoprazole 40 Mg Tablet) 40 mg PO QDAY XIOMY Stop: 03/04/24 08:59 Tamsulosin HCl (Tamsulosin Hcl 0.4 Mg Capsule) 0.4 mg PO QDAY XIOMY Stop: 03/04/24 08:59 Discontinued Medications Clonidine (Clonidine Hcl 0.1 Mg Tablet) 0.2 mg PO X1 ONE Stop: 02/01/24 23:01 Last Admin: 02/01/24 23:08 Dose: 0.2 mg Clonidine (Clonidine Hcl 0.1 Mg Tablet) 0.2 mg PO X1 ONE Stop: 02/02/24 11:03 Last Admin: 02/02/24 11:23 Dose: 0.2 mg Enalaprilat (Enalaprilat Inj 1.25 Mg/Ml Vial) 1.25 mg IVP X1 ONE Stop: 02/02/24 07:04 Last Admin: 02/02/24 07:29 Dose: 1.25 mg Enalaprilat (Enalaprilat Inj 1.25 Mg/Ml Vial) 1.25 mg IVP X1 ONE Stop: 02/02/24 13:22 Last Admin: 02/02/24 15:00 Dose: 1.25 mg Hydralazine HCl (Hydralazine Inj 20 Mg/Ml Vial) 10 mg IV X1 ONE Stop: 02/02/24 22:30 Sodium Chloride (Ns) 1,000 mls @ 999 mls/hr IV .Q1H1M ONE Stop: 02/01/24 22:40 Last Infusion: 02/01/24 23:47 Dose: Infused Insulin Human Regular (Insulin Hum Regular 1 Unit/0.01 Ml (Per Unit)) 15 unit IV X1 ONE Stop: 02/01/24 23:12 Last Admin: 02/01/24 23:32 Dose: 15 unit Lorazepam (Lorazepam 0.5 Mg Tablet) 1 mg PO X1 ONE Stop: 02/02/24 02:29 Last Admin: 02/02/24 02:31 Dose: 1 mg Assessment & Plan Plan Patient is an 78-year-old male with a past medical history of diabetes mellitus type 2 insulin dependent, hyperlipidemia, possible history of CHF on metoprolol, CKD stage IV declining dialysis (follows nephrology, Dr. Bedoya), possible history of dementia on Donepezil, and history of DVT on Plavix who was admitted for altered mental status and NIC on CKD. #Altered Mental Status #Dementia Etiology: Given history of CKD IV, possible ESRD with refusal to do dialysis per chart review, likely contributing to altered mental status DDx: given old infarcts on CT head, previous history of CVA can not be ruled out, consider MRI vs hyperglycemia leading to altered mental status vs less likley secondary to hypercalcemia as its only mild elevation. Diagnostic Tests: Head CT (02/03/2024): Small bifrontal chronic subdural hydromas, right frontal encephalomalacia, Right basal ganglia old infart, NO acute hemorrhage mass effect or midline shift. Brain MRI to rule out ischemic changes. Plan: -Social Service referral for possible SNF placement -TSH -NPO -speech evaluation -Aspiration precautions -Consider MRI in AM, follow up with family #Hypertensive Emergency #HTN Etiology: history of hypertension, unclear if patient has been taking medication, family per chart review is unable to care for patient. Home medication of Amlodipine and Losartan. Holding Losartan Plan -Hydralazine 50 mg PO TID -Amlodipine 10 mg Qday -Hydralazine 10 mg IV X 1 #NIC on CKD #CKD IV (10/2023)-->ESRD #Hypercalcemia Etiolgoy: History of CKD who follows nephrology with Dr. Bedoya. Patient declined dialysis, previous GFR 18 (10/2023). NIC on CKD likely secondary to sepsis and decrease oral intake. Mild Hypercalcemia likely secondary to CKD. DDx: Obstructive NIC can not be ruled out,history of BPH on tamsulosin vs intrinsic NIC given BUN/Cr ratio less than <15. Diagnostics: CMP (02/01/2024): BUN 41, Cr 4.4, GFR 13, BUN/Cr 9 CMP (02/02/2024): BUN 37 H, Cr 3.9, CrCl 12.6, GFR 9 (02/01/2024) GFR 13--> (02/02/2024)GFR 15, improved Plan -NS 1000 mls @ 75 cc -Phophorus AM -given patients refusal for dialysis, restart home anti-hypertensive medication -Consider Avoiding nephrotoxins, given possible ESRD -Nephrology consulted, Dr. Bedoya, appreciate recommendations. #Hyperglycemia #Diabetes Mellitus Type 2, insulin dependent Etiology: history of DM on insulin, Lantus per chart review. On admission glucose of 499-->238 and A1c (10/16/2023) 8.1. Less likely DKA as beta-hydroxylase 1.1. Plan -Sliding Scale -follow up with Fasting glucose -consider A1c (previous A1c 10/2023) and lipid panel #HLD Plan -restart home medication, Atorvastatin 40 mg PO HS #hx of DVT Plan -start home medication, Clopidogrel/Plavix 75 mg PQday #Compensated CHF (?) Plan -No acute intervention -Consider restarting metoprolol succinate 25 mg, AM Health Maintenance: Disp: Pt is currently admitted to floors for further management of altered mental status, awaiting improved resolution and improved glucose control FEN: NPO, pending speech evaluation DVT: Plavix Code: DNR - The patient's plan was discussed with attending Dr. Shetty. Jumana Ovalles MD PGY1 Internal Medicine Attending Provider Attestation/Addendum I reviewed labs, imaging, EKG, home medications and prior available records. Face to face evaluation was performed by me. I have personally examined the patient and discussed assessment and plan with the IM team. I reviewed the resident note and agree with the plan with exceptions as below. 78-year-old male with history of dementia, DVT, CKD stage IV, CHF, who presented with a chief complaint of altered mental status and worsening CKD. He was found to have hypertensive urgency. Acute encephalopathy: Likely in the setting of hypertensive encephalopathy versus delirium in the setting of dementia versus uremia from advanced CKD that is reaching hemodialysis point. Management of the underlying conditions as below. Hypertensive encephalopathy: Will give IV hydralazine push and started the patient on amlodipine and hydralazine orally. Monitor BP. Worsening CKD: Reaching CKD stage V. Discussed with the patient's son: Refused hemodialysis. Will try IV fluids and monitor kidney function. Avoid nephrotoxins. Renally dosed medications. Patient is DNR/DNI. Recommend home with home hospice. Will keep the patient for BP management and mental status monitoring. utility maintenance worker to follow. Uncontrolled diabetes mellitus with hyperglycemia: Resume home insulin plus sliding scale and monitor fingersticks.
[2024-02-02] MEDS: ATORVASTATIN CALCIUM 20 MG TABLET 40 MG PO (23:45)
[2024-02-02] MEDS: hydrALAZINE HCL 25 MG TABLET 50 MG PO (23:45)
[2024-02-02] MEDS: hydrALAZINE INJ 20 MG/ML VIAL 10 MG IV (23:48)
[2024-02-03] VITALS (15 sets, daily range): BP systolic 114–193; BP diastolic 64–100; PULSE 52–87; RESP 16–100; TEMP 36.1–36.7; O2SAT 98–100
[2024-02-03] MEDS: SODIUM CHLORIDE 0.9% 1000 ML 1,000 ML 75 ML IV (00:01)
[2024-02-03 00:03] LABS: Amphetamine/Methamp Scrn,U Negative (Negative); Barbiturate Screen,Urine Negative (Negative); Benzodiazepines Screen,Urine Negative (Negative); Benzoylecgonine Screen, Ur Negative (Negative); Fentanyl Screen,Urine Negative (Negative); Opiate Screen,Urine Negative (Negative); THC Screen,Urine Negative (Negative)
[2024-02-03] MEDS: INSULIN LISPRO (AdmeLOG) 1 UNIT/0.01 ML UNIT SC ×4 (00:17→20:41)
--- NOTE | 2024-02-03 02:19 | PC.NURSE ---
Spoke with patient's son, Galen, via phone. Son will bring in list of meds later today for medication reconciliation.
[2024-02-03 06:02] LABS: Basophils # (Auto) 0.1 Thou/mm3 (0.0-0.2); Basophils % (Auto) 1 % (0-2.5); Eosinophils # (Auto) 0.3 Thou/mm3 (0.0-0.5); Eosinophils % (Auto) 3 % (0-10); Hematocrit 41.3 % (41.0-53.0); Hemoglobin 14.3 g/dL (13.5-16.0); Immature Granulocytes % (Auto) 0 % (0-0); Immature Granulocytes Auto 0.03 Thou/mm3 (0.00-0.00); Lymphocytes # (Auto) 1.1 Thou/mm3 (1.0-4.8); Lymphocytes % (Auto) 13 % (10-50); Mean Corpuscular HGB Conc 34.6 g/dl (31.0-37.0); Mean Corpuscular Hemoglobin 28.8 pg (25.0-35.0); Mean Corpuscular Volume 83 fL (80-100); Monocytes # (Auto) 0.6 Thou/mm3 (0.0-0.8); Monocytes % (Auto) 7 % (0-12); Neutrophils # (Auto) 6.8 Thou/mm3 (1.8-7.7); Neutrophils % (Auto) 76 % (37-80); Nucleated Red Blood Cell % 0 /100 WBC (0); Platelet Count 166 Thou/mm3 (140-440); RDW Standard Deviation 42.1 fL (35.1-43.9); Red Blood Count 4.96 Miln/mm3 (4.50-5.90); White Blood Count 8.9 Thou/mm3 (3.8-10.6)
[2024-02-03] MEDS: hydrALAZINE HCL 25 MG TABLET 50 MG PO (06:03)
[2024-02-03] MEDS: TAMSULOSIN HCL 0.4 MG CAPSULE PO (10:17)
[2024-02-03] MEDS: PANTOPRAZOLE 40 MG TABLET PO (10:17)
[2024-02-03] MEDS: DONEPEZIL HCL 5 MG TABLET 10 MG PO (10:17)
[2024-02-03] MEDS: CLOPIDOGREL BISULFATE 75 MG TABLET PO (10:17)
[2024-02-03] MEDS: niCARdipine 20 MG CAPSULE PO (10:18)
[2024-02-03] MEDS: METOPROLOL SUCCINATE XL 25 MG TABCR PO (10:18)
[2024-02-03] MEDS: INSULIN GLARGINE (Lantus) 5 UNIT/0.05 ML (PER 5 UNITS) 8 UNIT SC (10:43)
[2024-02-03 11:51] LABS: Sodium 141 mMol/L (136-145)
[2024-02-03 11:52] LABS: Anion Gap 14 (7-16); Aspartate Amino Transferase 21 U/L (0-34); BUN/Creatinine Ratio 12 Ratio (12-20); Bilirubin,Total 0.3 mg/dL (0.3-1.2); Blood Urea Nitrogen 44 mg/dL (9-23); Carbon Dioxide 21.5 mMol/L (20.0-31.0); Chloride 106 mMol/L (98-107); Creatinine (Component) 3.7 mg/dL (0.6-1.3); Glucose 146 mg/dL (74-106); Magnesium 1.7 mg/dL (1.6-2.6); Osmolality,Calculated 295 (275-295); Phosphorous 3.9 mg/dL (2.4-5.1); Potassium 4.4 mMol/L (3.4-5.1); eGFR 16 See Note
[2024-02-03 11:53] LABS: Alanine Aminotransferase < 7 U/L (10-49); Albumin/Globulin Ratio 1.8 (1.2-2.2); Alkaline Phosphatase 77 U/L (46-116); Globulin 2.2 gm/dL (2.3-3.5); Thyroid Stimulating Hormone 4.24 uIU/mL (0.55-4.78); Total Protein 6.2 gm/dL (5.7-8.2)
--- NOTE | 2024-02-03 14:29 | ESPR_ITS ---
<Statement entered by Burt Uriostegui DO - 02/03/24 15:42> Senior attestation: Patient was examined and case was reviewed with team including attending physician. Note reviewed, I agree with most of its contents and agree with the patient's care. Brain MRI pending however patient may not be compliant for imaging, may have to delay MRI. Nephrology team following, will add antihypertensives such as nicardipine and metoprolol today for better blood pressure control. Will hold home losartan given NIC concerns. Burt Uriostegui DO PGY-3 Documentation for date of: 02/03/24 Subjective Subjective Interval history: No acute events overnight. Patient seen and observed at bedside. Labs reviewed. Patient was noted to be agitated by nursing. He was seen with son at bedside. Patient is not able to give a clear story as to why he is at the hospital. He is alert and oriented to person only. At baseline, patient is usually alert and oriented in person and place. Son states that he is no longer able to take care of his father and family prefers SNF placement. Will order brain MRI to identify the small source of encephalopathy. The patient tolerates having brain MRI will pursue it. However if patient becomes agitated or too fidgety, refrain from giving any benzodiazepines. Considering patient's hypertensive emergency, will continue patient on amlodipine and hydralazine. Exam Vital Signs Temp Pulse Resp BP Pulse Ox O2 Del Method O2 Flow Rate 97.0 F 68 18 187/88 H 100 Room Air 3 02/03/24 04:00 02/03/24 10:18 02/03/24 08:19 02/03/24 10:18 02/03/24 04:00 02/03/24 04:00 02/02/24 23:23 Narrative Exam General Appearance: well-nourished male who is lying in bed in no acute distress. HEENT: Skull symmetrical and atraumatic. Pupils equal, round, reactive to light and accommodation (PERRL). Cardio: RRR, S1 and S2 heart sounds. No murmurs or extra heart sounds auscultated. Lungs: Symmetric with good expansion. Chest and back non-tender. Breath sounds vesicular without crackles, wheezing or rhonchi Abdomen: Non-tender, Non-distended. Neuro: Alert and oriented to person. Objective Labs 02/04/24 04:57 02/04/24 04:57 Labs: Laboratory Results - last 24 hr 02/02/24 02/02/24 02/03/24 19:38 23:31 05:40 WBC 7.6 8.9 RBC 4.36 L 4.96 Hgb 12.4 L 14.3 Hct 36.7 L 41.3 MCV 84 83 MCH 28.4 28.8 MCHC 33.8 34.6 RDW Std Deviation 42.8 42.1 Plt Count 165 D 166 Neut % (Auto) 71 76 Lymph % (Auto) 15 13 [place] % (Auto) 8 7 Eos % (Auto) 5 3 Baso % (Auto) 1 1 Neut # (Auto) 5.3 6.8 Lymph # (Auto) 1.2 1.1 [place] # (Auto) 0.6 0.6 Eos # (Auto) 0.4 0.3 Baso # (Auto) 0.1 0.1 Immature Gran # (Auto) 0.03 H 0.03 H Absolute Nucleated RBC 0.00 0.00 Immature Gran % 0 0 Nucleated RBC % 0 0 PT 11.0 INR 1.0 APTT 26.4 Sodium 137 141 Potassium 5.1 D 4.4 D Chloride 105 106 Carbon Dioxide 27.1 21.5 Anion Gap 5 L 14 BUN 37 H 44 H Creatinine 3.9 H D 3.7 H Estim Creat Clear Calc 12.6 L 12.0 L eGFR 15 L 16 L BUN/Creatinine Ratio 9 L 12 Glucose 238 H D 146 H D Calculated Osmolality 290 295 Lactic Acid 1.0 Calcium 11.1 H 11.0 H Corrected Calcium 11.1 H 11.0 H Phosphorus 3.9 Magnesium 1.6 1.7 Total Bilirubin 0.5 0.3 AST 13 21 ALT < 7 L < 7 L Alkaline Phosphatase 75 D 77 Total Protein 6.4 6.2 Albumin 4.0 4.0 Globulin 2.4 2.2 L Albumin/Globulin Ratio 1.7 1.8 Beta-Hydroxybutyrate/Acetoacetate 1.1 H TSH 3.53 4.24 Urine Opiates Screen Negative Urine Fentanyl Screen Negative Ur Barbiturates Screen Negative U Amphetamin/Meth Scrn Negative U Benzodiazepines Scrn Negative U Cocaine Metab Screen Negative U Marijuana (THC) Screen Negative ABG Interpretation ABG results: 02/01/24 22:15 VBG pH 7.43 VBG pCO2 38 VBG pO2 47 VBG Base Excess 1 Quality Measures Quality Measures none Advance care planning discussed with:: patient Assessment & Plan Assessment Current Active Medications: Generic Name Dose Route Start Last Admin Trade Name Janki PRN Reason Stop Dose Admin Acetaminophen 650 mg 02/02/24 22:22 Acetaminophen 325 Mg Tablet PO 03/03/24 22:21 Q6H PRN Mild Pain 1-3 or Fever >100.4 Atorvastatin Calcium 40 mg 02/02/24 21:00 02/02/24 23:45 Atorvastatin Calcium 20 Mg Tablet PO 03/03/24 20:59 40 mg HS XIOMY Administration Clopidogrel Bisulfate 75 mg 02/03/24 09:00 02/03/24 10:17 Clopidogrel Bisulfate 75 Mg Tablet PO 03/04/24 08:59 75 mg QDAY XIOMY Administration Dextrose 25 ml 02/02/24 22:37 Dextrose 50%-Water Inj 50 Ml Syringe IV 03/03/24 22:36 Q15MIN PRN BG 50-70 responsive npo pt Dextrose 50 ml 02/02/24 22:37 Dextrose 50%-Water Inj 50 Ml Syringe IV 03/03/24 22:36 Q15MIN PRN BG <50 OR BG <70 & pt unresponsive Donepezil HCl 10 mg 02/03/24 09:00 02/03/24 10:17 Donepezil Hcl 5 Mg Tablet PO 03/04/24 08:59 10 mg QDAY XIOMY Administration Glucagon 1 mg 02/02/24 22:37 Glucagon Inj 1 Mg Vial IM Q15MIN PRN BG <70, and no IV access Hydralazine HCl 50 mg 02/02/24 22:45 02/03/24 06:03 Hydralazine Hcl 25 Mg Tablet PO 03/03/24 22:44 50 mg TID XIOMY Administration Hydralazine HCl 10 mg 02/03/24 09:06 Hydralazine Inj 20 Mg/Ml Vial IV 03/04/24 09:05 Q4H PRN blood pressure systlic > 185 Insulin Glargine 8 unit 02/03/24 09:15 02/03/24 10:43 Insulin Glargine (Lantus) 5 Unit/0.05 Ml (Per 5 Units) SC 03/04/24 09:14 8 unit QDAY XIOMY Administration Insulin Human Lispro 0 unit 02/03/24 00:00 02/03/24 12:02 Insulin Lispro (Admelog) 1 Unit/0.01 Ml Unit SC 03/04/24 00:00 2 unit Q6HR XIOMY Administration Protocol Metoprolol Succinate 25 mg 02/03/24 09:15 02/03/24 10:18 Metoprolol Succinate Xl 25 Mg Tabcr PO 03/04/24 09:14 25 mg QDAY XIOMY Administration Nicardipine HCl 20 mg 02/03/24 09:15 02/03/24 10:18 Nicardipine 20 Mg Capsule PO 03/04/24 09:14 20 mg BID XIOMY Administration Pantoprazole Sodium 40 mg 02/03/24 09:00 02/03/24 10:17 Pantoprazole 40 Mg Tablet PO 03/04/24 08:59 40 mg QDAY XIOMY Administration Sennosides 1 tab 02/02/24 23:10 Senna/Docusate Sod 1 Tab Tablet PO 03/03/24 23:09 QDAY PRN CONSTIPATION Protocol Tamsulosin HCl 0.4 mg 02/03/24 09:00 02/03/24 10:17 Tamsulosin Hcl 0.4 Mg Capsule PO 03/04/24 08:59 0.4 mg QDAY XIOMY Administration Plan 78-year-old male with a past medical history of diabetes mellitus type 2 insulin dependent, hyperlipidemia, ?CHF on metoprolol, 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 Bedoya), dementia on Donepezil, and DVT on Plavix presented in the ED after episode of confusion. In the ED, he had blood pressure >200/90, BUN 37, and creatinine 3.9, calcium elevated above 11, glucose greater than 499. He was admitted for management of acute encephalopathy and NIC on CKD. #Acute encephalopathy, toxic vs metabolic #Right frontal encephalomalacia #Chronic subdural hydromas #Hypercalcemia #Hyperglycemia-resolved Ddx: Hypercalcemia versus hypertension-induced encephalopathy Patient presented for not making sense at home per family account. 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 He was found to have hyperglycemia and hypercalcemia which likely contributed to patient's confused state. Considering patient's hypertensive emergency this likely worsened his mentation. Possible NIC on CKD, hypertensive emergency, and electrolyte abnormalities resulting in patient's hostile behavior and altered mentation. Head CT (02/03/2024): Small bifrontal chronic subdural hydromas, right frontal encephalomalacia, Right basal ganglia old infart, no acute hemorrhage mass effect or midline shift. TSH normal range. Plan: -Brain MRI to further assess source of encephalopathy -NPO -Wheeler in place -speech evaluation pending -Aspiration/seizure precautions -Continue with fluids for hypercalcemia - PTH and vitamin D 25-hydroxy ordered; f/up #Hypertensive Emergency #HTN Patient has history of hypertension. He may not be compliant on medication, Home medication is Amlodipine and Losartan. Plan -Hydralazine 50 mg PO TID -Amlodipine 10 mg Qday -Holding Losartan in setting of NIC on CKD. #Social Service referral Family requests assistance with patient. Spoke with family at bedside who states that they are not able to fully take care of the patient at home. Plan: -Social Service referral for SNF placement -Pending placement #New onset ESRD #NIC on CKD #CKD IV (10/2023) #Hypercalcemia NIC on CKD likely secondary to declining dialysis despite requiring fluid removal with dialysis and decreased oral intake. Mild Hypercalcemia likely secondary to CKD. History of CKD who followed by Dr. Bedoya. GFR 18 (10/2023). Post-renal NIC can not be ruled out considering patient's history of BPH on tamsulosin. BUN 37 increasing BUN 44 , Cr 3.9 improved to 3.7, CrCl 12.6, GFR 9 on presentation, now 16 GFR. Plan: -NS 1000 mls @ 75 cc -Phophorus AM -given patients refusal for dialysis, restart home anti-hypertensive medication -Consider Avoiding nephrotoxins, given possible ESRD -Nephrology consulted, Dr. Bedoya, spoke with son who would like DNR with comfort care and rehab placement as patient cannot take in care of at home. No need for emergency dialysis. #Diabetes Mellitus Type 2, insulin dependent Chronic, uncontrolled History of DM on insulin, on Lantus. On admission glucose of 499, down trended with treatment to 238 A1c (10/16/2023) 8.1. Less likely DKA with beta-hydroxylase 1.1. Plan: -Sliding Scale -Bedside glucose check -Hypoglycemic protocol -A1c and lipid panel; f/up #HLD Patient has history of hyperlipidemia on atorvastatin. Plan: -Atorvastatin 40 mg PO HS #(?)CHF No prior echo on chart review. Patient appears clinically euvolemic. Plan: -will consider echo -Consider restarting metoprolol succinate 25 mg #Hyperglycemia-resolved Health Maintenance: Disp: Admitted for management of acute encephalopathy, pending MRI. FEN: NPO, pending speech evaluation DVT: Plavix Code: DNR Discussed case with my attending Dr. Celestin and senior Moody, PGY-3. Thank you, Azul Torre, PGY-2 - Attending Provider Attestation/Addendum Face to face evaluation was performed by me. I have personally seen and examined the patient. I discussed the assessment and plan with the entire medicine team. I reviewed available medical records, imaging studies, laboratory results. 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 Patient was not at baseline during our round according to family. -Monitor clinical course, vitals, labs closely. Avoid nephrotoxic agents. Therapy for possible placement if patient agreeable and qualifies. Looks like family is not able to take care of him due to all his medical problems including weakness and dementia. DVT prophylaxis, will add heparin product.
--- NOTE | 2024-02-03 16:16 | PC.SS ---
This is 78-year-old, male who presented to the ED due to suffering from confusion and delusions. SW completed assessment with son, Galen. Per Galen, prior to patient's ED visit, he was residing at home with him. Patient was independent with most ADLS; he has a cane and walker, but hardly used them. Patient suffers from dementia. Patient's medical decision maker is his son, Galen Grullon. Per Galen, patient will need hospice services through [facility] since he has been refusing dialysis treatments. When medically clear, patient will need a SNF for short-term rehabilitation and hospice services, if needed. Discharge plan: SNF with [facility], if required. Next of kin: tato Aaron ([phone])
--- NOTE | 2024-02-03 18:19 | ESPR_ITS ---
Documentation for date of: 02/03/24 Subjective Subjective Interval history: Informant son Mr. Lundy is a 78-year-old gentleman with extensive past medical history of hypertension, diabetes, dyslipidemia, acid reflux, CKD stage IV (10/2023 GFR 18-has been declining dialysis) presented to the emergency department brought by the son with altered mental status and not feeling well for the last 48 hours. Patient has been very restless and altered that I got the information from his son on the phone. Apparently patient's appetite has been on the lower side. Denies any fever or chills. No nausea, vomiting. Denies any shortness of breath. Home medications included amlodipine, atorvastatin, Plavix, donepezil, furosemide, gemfibrozil, Lantus, losartan, metoprolol, Janumet, tamsulosin (not sure if he is taking) PCP is at [facility]. In the emergency department blood pressure 176/79, heart rate 52. Blood sugar 226. WBC 7.6, hemoglobin 12.4, platelets 165.Sodium 132, potassium 4.6, bicarbonate 24.7, BUN 41, creatinine 4.4, GFR 13, blood sugar 499, calcium 11.8, LFTs normal, ammonia level negative. Albumin 4.3, beta hydroxy 0.1, last PTH in October was 198. Urinalysis shows 2+ protein/4+ glucose. Head CT was negative for any stroke. Patient was Started on IV fluids and renal consultation requested for NIC by ER provider. 02/03/2024 patient currently seen in medical floor. He seems to be very confused still. Instrument Repair Specialist was used. Blood pressure 187/88, heart rate 68. Blood sugar 190. CBC normal. Sodium 141, potassium 4.4, BUN 44, creatinine 3.7, GFR 16, calcium improved to 11, phosphorus 3.9, LFTs normal, TSH normal, urine tox screen negative. Patient started to make urine he has a Wheeler catheter. Might benefit from going to rehab. Family requested comfort care and DNR yesterday. Continue with IV fluids. Review of Systems Review of Systems Narrative Review of Systems: Limited due to his mental status. Patient seems to be confused. Exam Vital Signs Temp Pulse Resp BP Pulse Ox O2 Del Method O2 Flow Rate 36.1 C 68 18 187/88 H 100 Room Air 3 02/03/24 04:00 02/03/24 10:18 02/03/24 08:19 02/03/24 10:18 02/03/24 04:00 02/03/24 04:00 02/02/24 23:23 Narrative Exam GENERAL APPEARANCE: Elderly gentleman currently seen in medical floor NECK: Neck supple, no JVD or bruit CARDIOVASCULAR: Heart regular, no murmurs LUNGS/CHEST: Chest clear to auscultation. No rales, rhonchi, wheezing ABDOMEN: Soft, nontender, nondistended. No masses. Normal bowel sounds. Has Wheeler catheter EXTREMITIES: No edema, clubbing or cyanosis. SKIN: Skin exam normal without any rashes MUSCULOSKELETAL in bed LYMPHATICS: No lymphadenopathy noted NEUROLOGICAL : patient is altered. Objective Labs 02/03/24 05:40 02/03/24 05:40 Labs: Laboratory Results - last 24 hr 02/02/24 02/02/24 02/03/24 19:38 23:31 05:40 WBC 7.6 8.9 RBC 4.36 L 4.96 Hgb 12.4 L 14.3 Hct 36.7 L 41.3 MCV 84 83 MCH 28.4 28.8 MCHC 33.8 34.6 RDW Std Deviation 42.8 42.1 Plt Count 165 D 166 Neut % (Auto) 71 76 Lymph % (Auto) 15 13 [place] % (Auto) 8 7 Eos % (Auto) 5 3 Baso % (Auto) 1 1 Neut # (Auto) 5.3 6.8 Lymph # (Auto) 1.2 1.1 [place] # (Auto) 0.6 0.6 Eos # (Auto) 0.4 0.3 Baso # (Auto) 0.1 0.1 Immature Gran # (Auto) 0.03 H 0.03 H Absolute Nucleated RBC 0.00 0.00 Immature Gran % 0 0 Nucleated RBC % 0 0 PT 11.0 INR 1.0 APTT 26.4 Sodium 137 141 Potassium 5.1 D 4.4 D Chloride 105 106 Carbon Dioxide 27.1 21.5 Anion Gap 5 L 14 BUN 37 H 44 H Creatinine 3.9 H D 3.7 H Estim Creat Clear Calc 12.6 L 12.0 L eGFR 15 L 16 L BUN/Creatinine Ratio 9 L 12 Glucose 238 H D 146 H D Calculated Osmolality 290 295 Lactic Acid 1.0 Calcium 11.1 H 11.0 H Corrected Calcium 11.1 H 11.0 H Phosphorus 3.9 Magnesium 1.6 1.7 Total Bilirubin 0.5 0.3 AST 13 21 ALT < 7 L < 7 L Alkaline Phosphatase 75 D 77 Total Protein 6.4 6.2 Albumin 4.0 4.0 Globulin 2.4 2.2 L Albumin/Globulin Ratio 1.7 1.8 Beta-Hydroxybutyrate/Acetoacetate 1.1 H TSH 3.53 4.24 Urine Opiates Screen Negative Urine Fentanyl Screen Negative Ur Barbiturates Screen Negative U Amphetamin/Meth Scrn Negative U Benzodiazepines Scrn Negative U Cocaine Metab Screen Negative U Marijuana (THC) Screen Negative ABG Interpretation ABG results: 02/01/24 22:15 VBG pH 7.43 VBG pCO2 38 VBG pO2 47 VBG Base Excess 1 Assessment & Plan Assessment and plan (1) Acute renal failure (ARF): Status: Acute Assessment and plan: Acute renal failure secondary to prerenal azotemia. Secondary to decreased p.o. intake/severe hypercalcemia. Agree with continuing on IV fluids. Creatinine slowly improving. 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 Had a long conversation with son Galen over the phone-patient apparently has been declining dialysis. Son wants him to be DNR, comfort care and rehab placement. He cannot take care of him at home. (2) Altered mental status: Status: Acute Assessment and plan: Secondary to metabolic encephalopathy/hypercalcemia/hypertensive encephalopathy (3) Hypercalcemia: Status: Acute Assessment and plan: Secondary to dehydration. Will continue with fluids. Check PTH, vitamin D levels. Calcium 11.0 (4) Hypertension: Status: Acute Assessment and plan: Hypertension-add amlodipine Hold losartan (5) Diabetes: Status: Acute Assessment and plan: Accu-Cheks, sliding scale. Hold off on metformin (6) Hyperlipidemia: Status: Acute Assessment and plan: On Lipitor Additional Assessment & Plan Additional Plan: Thank you Dr. Celestin for allowing me to participate in the care of Mr. Lundy
[2024-02-03] MEDS: ATORVASTATIN CALCIUM 20 MG TABLET 40 MG PO (20:41)
[2024-02-03] MEDS: QUEtiapine FUMARATE 25 MG TABLET 12.5 MG PO (20:41)
[2024-02-04] VITALS (16 sets, daily range): BP systolic 132–191; BP diastolic 56–83; PULSE 53–89; RESP 16–98; TEMP 36.3–36.7; O2SAT 97–100
[2024-02-04] MEDS: hydrALAZINE INJ 20 MG/ML VIAL 10 MG IV (05:12)
[2024-02-04 05:53] LABS: Basophils % (Auto) 1 % (0-2.5); Eosinophils # (Auto) 0.3 Thou/mm3 (0.0-0.5); Eosinophils % (Auto) 4 % (0-10); Hematocrit 33.7 % (41.0-53.0); Hemoglobin 11.3 g/dL (13.5-16.0); Immature Granulocytes % (Auto) 0 % (0-0); Immature Granulocytes Auto 0.01 Thou/mm3 (0.00-0.00); Lymphocytes # (Auto) 1.4 Thou/mm3 (1.0-4.8); Lymphocytes % (Auto) 18 % (10-50); Mean Corpuscular HGB Conc 33.5 g/dl (31.0-37.0); Mean Corpuscular Hemoglobin 28.5 pg (25.0-35.0); Mean Corpuscular Volume 85 fL (80-100); Monocytes # (Auto) 0.7 Thou/mm3 (0.0-0.8); Monocytes % (Auto) 9 % (0-12); Neutrophils # (Auto) 5.3 Thou/mm3 (1.8-7.7); Neutrophils % (Auto) 68 % (37-80); Nucleated Red Blood Cell % 0 /100 WBC (0); Platelet Count 164 Thou/mm3 (140-440); RDW Standard Deviation 43.7 fL (35.1-43.9); Red Blood Count 3.96 Miln/mm3 (4.50-5.90); White Blood Count 7.8 Thou/mm3 (3.8-10.6)
[2024-02-04 06:11] LABS: Glucose Estimated Average 252 mg/dL (80-131); Hemoglobin A1C 10.4 % Hgb (4.8-6.0)
[2024-02-04 06:27] LABS: Alanine Aminotransferase < 7 U/L (10-49); Albumin, Serum 3.8 gm/dL (3.4-4.8); Albumin/Globulin Ratio 1.7 (1.2-2.2); Alkaline Phosphatase 64 U/L (46-116); Anion Gap 11 (7-16); Aspartate Amino Transferase 16 U/L (0-34); BUN/Creatinine Ratio 9 Ratio (12-20); Bilirubin,Total 0.5 mg/dL (0.3-1.2); Blood Urea Nitrogen 34 mg/dL (9-23); Calcium 10.3 mg/dL (8.3-10.6); Calcium (Corrected) 10.5 mg/dL (8.5-10.1); Carbon Dioxide 24.2 mMol/L (20.0-31.0); Chloride 106 mMol/L (98-107); Creatinine (Component) 3.7 mg/dL (0.6-1.3); Globulin 2.2 gm/dL (2.3-3.5); Glucose 95 mg/dL (74-106); Magnesium 1.6 mg/dL (1.6-2.6); Osmolality,Calculated 288 (275-295); Phosphorous 3.7 mg/dL (2.4-5.1); Potassium 3.6 mMol/L (3.4-5.1); Sodium 141 mMol/L (136-145); eGFR 16 See Note
[2024-02-04 07:51] LABS: Cardiac Risk Estimate 8.8 RATIO (4.0-6.7); Cholesterol 254 mg/dL (132-200); HDL Cholesterol 29 mg/dL (40-60); LDL Cholesterol,Calculated 175 mg/dL (0-130); Triglycerides 251 mg/dL (30-150)
[2024-02-04] MEDS: niCARdipine 20 MG CAPSULE PO ×2 (08:31→20:09)
[2024-02-04] MEDS: CLOPIDOGREL BISULFATE 75 MG TABLET PO (08:32)
[2024-02-04] MEDS: TAMSULOSIN HCL 0.4 MG CAPSULE PO (08:32)
[2024-02-04] MEDS: METOPROLOL SUCCINATE XL 25 MG TABCR 50 MG PO (08:32)
[2024-02-04] MEDS: ACETAMINOPHEN 325 MG TABLET 650 MG PO (08:32)
[2024-02-04] MEDS: PANTOPRAZOLE 40 MG TABLET PO (08:32)
[2024-02-04] MEDS: DONEPEZIL HCL 5 MG TABLET 10 MG PO (08:32)
--- NOTE | 2024-02-04 11:09 | PCS.ST ---
ASSEMBLER SKYLIGHTS attempted to evaluate pt's cognitive abilities; however, was unable to follow directions nor did he have his glasses to be able to see items in front of him. ASSEMBLER SKYLIGHTS spoke to MD regarding pt's confusion, lack of appetite and unable to follow directions. MD reported he will talk to pt's family regarding CC measures. ASSEMBLER SKYLIGHTS will return to attempt cognitive abilities evaluation, if necessary.
--- NOTE | 2024-02-04 13:18 | PD.ADDPROG ---
Addendum Progress Note Addendum Date of report being addended: 02/04/24 Narrative: Face to face evaluation was performed by me. I have personally seen and examined the patient. I discussed the assessment and plan with the entire medicine team. I reviewed available medical records, imaging studies, laboratory results. 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 Sitter outside, no acute events. Patient still not oriented in time or place for sure.Discussed with him the plan, during conversation he mentioned that then yes he remembers now is important to the hospital. -Nephrology consulted, appreciate help, will follow recommendations -Continue to treat hypertension, suspect hypertensive encephalopathy , stop hydralazine for now continue with nicardipine 20 mg twice daily, metoprolol 50 mg succinate daily, Flomax 0.4 mg daily. As needed clonidine and IV hydralazine ordered. Stop p.o. hydralazine for now to avoid relative hypotension episodes in his case. -Monitor clinical course, vitals, labs closely. Avoid nephrotoxic agents. Therapy for possible placement if patient agreeable and qualifies. Looks like family is not able to take care of him due to all his medical problems including weakness and dementia. DVT prophylaxis, will add heparin product.
[2024-02-04] MEDS: HEPARIN SOD INJ 5000 UNIT/ML VIAL SC (13:55)
--- NOTE | 2024-02-04 14:25 | PC.NURSE ---
Notified that per tele patient heart rate has dropped down to 53 but is currently back at 68. Patient is also having pvc's. No complaints of chest pain at this time and vitals are wnl. No new orders received at this time.
--- NOTE | 2024-02-04 15:40 | ESPR_ITS ---
<Statement entered by Burt Uriostegui DO - 02/04/24 16:36> Senior attestation: Patient was examined and case was reviewed with team including attending physician. Note reviewed, I agree with most of its contents and agree with the patient's care. Antihypertensive regimen adjusted, hydralazine stopped. Patient's family has expressed interest in hospice, will order hospice referral. Case management team aware. Burt Uriostegui DO PGY-3 Documentation for date of: 02/04/24 Subjective Subjective Interval history: Patient seen at bedside. No acute overnight events. Patient's mentation is about the same, possibly in new baseline based on new diagnosis of dementia. He does not answer questions of orientation to person but recognizes that he is in the hospital. Patient does report that he has no pain and no problems and sometimes unwilling to answer questions. Pending MRI brain. Labs and vitals reviewed. Will stop hydralazine and continue nicardipine, metoprolol and tamsulosin as well as diabetes management. Calcium levels slightly improved today, 10.5. Still pending vitamin D and PTH results. Exam Vital Signs Temp Pulse Resp BP Pulse Ox O2 Del Method O2 Flow Rate 97.8 F 60 16 132/68 H 98 Room Air 3 02/04/24 13:00 02/04/24 13:00 02/04/24 13:00 02/04/24 13:00 02/04/24 13:00 02/04/24 13:00 02/02/24 23:23 Narrative Exam GENERAL: AAOX0 NEURO: STREET RAILWAY LINE INSTALLER grossly intact, moves extremities x4 HEENT: Moist mucosa. Eyes open, symmetrical, & clear CARDIO: No chest pain on palpation. Heart RRR, no obvious murmurs PULM: No noted coughing/dyspnea. Lungs CTA B/L GI: Abdomen soft, nondistended, no pain on palpation. BSx4 URO/CHILD NURSE:: No further abnormalities noted. SKIN/MSK/EXT: No wounds/rashes/edema/amputations, no pain on palpation. Pedal pulses present B/L Objective Labs 02/05/24 04:12 02/05/24 04:12 Labs: Laboratory Results - last 24 hr 02/04/24 04:57 WBC 7.8 RBC 3.96 L Hgb 11.3 L D Hct 33.7 L MCV 85 MCH 28.5 MCHC 33.5 RDW Std Deviation 43.7 Plt Count 164 Neut % (Auto) 68 Lymph % (Auto) 18 [place] % (Auto) 9 Eos % (Auto) 4 Baso % (Auto) 1 Neut # (Auto) 5.3 Lymph # (Auto) 1.4 [place] # (Auto) 0.7 Eos # (Auto) 0.3 Baso # (Auto) 0.0 Immature Gran # (Auto) 0.01 H Absolute Nucleated RBC 0.00 Immature Gran % 0 Nucleated RBC % 0 Sodium 141 Potassium 3.6 D Chloride 106 Carbon Dioxide 24.2 Anion Gap 11 BUN 34 H Creatinine 3.7 H Estim Creat Clear Calc 12.0 L eGFR 16 L BUN/Creatinine Ratio 9 L Glucose [address] Glu mg/dL 252 H Hemoglobin A1c 10.4 H Calculated Osmolality 288 Calcium 10.3 Corrected Calcium 10.5 H Phosphorus 3.7 Magnesium 1.6 Total Bilirubin 0.5 AST 16 ALT < 7 L Alkaline Phosphatase 64 Total Protein 6.0 Albumin 3.8 Globulin 2.2 L Albumin/Globulin Ratio 1.7 Triglycerides 251 H Cholesterol 254 H LDL Cholesterol, Calc 175 H HDL Cholesterol 29 L Cholesterol/HDL Ratio 8.8 H ABG Interpretation ABG results: 02/01/24 22:15 VBG pH 7.43 VBG pCO2 38 VBG pO2 47 VBG Base Excess 1 Quality Measures Quality Measures none Advance care planning discussed with:: patient Assessment & Plan Assessment Current Active Medications: Generic Name Dose Route Start Last Admin Trade Name Freq PRN Reason Stop Dose Admin Acetaminophen 650 mg 02/02/24 22:22 02/04/24 08:32 Acetaminophen 325 Mg Tablet PO 03/03/24 22:21 650 mg Q6H PRN Administration Mild Pain 1-3 or Fever >100.4 Atorvastatin Calcium 40 mg 02/02/24 21:00 02/03/24 20:41 Atorvastatin Calcium 20 Mg Tablet PO 03/03/24 20:59 40 mg HS XIOMY Administration Clopidogrel Bisulfate 75 mg 02/03/24 09:00 02/04/24 08:32 Clopidogrel Bisulfate 75 Mg Tablet PO 03/04/24 08:59 75 mg QDAY XIOMY Administration Dextrose 25 ml 02/02/24 22:37 Dextrose 50%-Water Inj 50 Ml Syringe IV 03/03/24 22:36 Q15MIN PRN BG 50-70 responsive npo pt Dextrose 50 ml 02/02/24 22:37 Dextrose 50%-Water Inj 50 Ml Syringe IV 03/03/24 22:36 Q15MIN PRN BG <50 OR BG <70 & pt unresponsive Donepezil HCl 10 mg 02/03/24 09:00 02/04/24 08:32 Donepezil Hcl 5 Mg Tablet PO 03/04/24 08:59 10 mg QDAY XIOMY Administration Glucagon 1 mg 02/02/24 22:37 Glucagon Inj 1 Mg Vial IM Q15MIN PRN BG <70, and no IV access Heparin Sodium (Porcine) 5,000 unit 02/04/24 13:30 02/04/24 13:55 Heparin Sod Inj 5000 Unit/Ml Vial SC 02/18/24 13:29 5,000 unit Q12H XIOMY Administration Hydralazine HCl 10 mg 02/03/24 09:06 02/04/24 05:12 Hydralazine Inj 20 Mg/Ml Vial IV 03/04/24 09:05 10 mg Q4H PRN Administration blood pressure systlic > 185 Insulin Glargine 8 unit 02/03/24 09:15 02/04/24 08:33 Insulin Glargine (Lantus) 5 Unit/0.05 Ml (Per 5 Units) SC 03/04/24 09:14 Not Given QDAY [facility] Insulin Human Lispro 0 unit 02/04/24 11:30 02/04/24 12:10 Insulin Lispro (Admelog) 1 Unit/0.01 Ml Unit SC 03/05/24 11:29 Not Given [facility] Protocol Metoprolol Succinate 50 mg 02/03/24 18:30 02/04/24 08:32 Metoprolol Succinate Xl 25 Mg Tabcr PO 03/04/24 18:29 50 mg QDAY XIOMY Administration Nicardipine HCl 20 mg 02/03/24 09:15 02/04/24 08:31 Nicardipine 20 Mg Capsule PO 03/04/24 09:14 20 mg BID XIOMY Administration Pantoprazole Sodium 40 mg 02/03/24 09:00 02/04/24 08:32 Pantoprazole 40 Mg Tablet PO 03/04/24 08:59 40 mg QDAY XIOMY Administration Quetiapine Fumarate 12.5 mg 02/03/24 21:00 02/03/24 20:41 Quetiapine Fumarate 25 Mg Tablet PO 03/04/24 20:59 12.5 mg HS XIOMY Administration Sennosides 1 tab 02/02/24 23:10 Senna/Docusate Sod 1 Tab Tablet PO 03/03/24 23:09 QDAY PRN CONSTIPATION Protocol Tamsulosin HCl 0.4 mg 02/03/24 09:00 02/04/24 08:32 Tamsulosin Hcl 0.4 Mg Capsule PO 03/04/24 08:59 0.4 mg QDAY XIOMY Administration Plan Summary: The patient is a 78-year-old male with a past medical history of diabetes mellitus type 2 insulin dependent, hyperlipidemia, ?CHF on metoprolol, 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 Bedoya), dementia on Donepezil, and DVT on Plavix presented in the ED after episode of confusion. In the ED, he had blood pressure >200/90, BUN 37, and creatinine 3.9, calcium elevated above 11, glucose greater than 499. He was admitted for management of acute encephalopathy and NIC on CKD. #Acute encephalopathy, toxic vs metabolic #Right frontal encephalomalacia #Chronic subdural hydromas #Hypercalcemia #Hyperglycemia-resolved Ddx: Hypercalcemia versus hypertension-induced encephalopathy Patient presented for not making sense at home per family account. 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 He was found to have hyperglycemia and hypercalcemia which likely contributed to patient's confused state. Considering patient's hypertensive emergency this likely worsened his mentation. Possible NIC on CKD, hypertensive emergency, and electrolyte abnormalities resulting in patient's hostile behavior and altered mentation. Head CT (02/03/2024): Small bifrontal chronic subdural hydromas, right frontal encephalomalacia, Right basal ganglia old infart, no acute hemorrhage mass effect or midline shift. TSH normal range. 02/04/2024- Patient's mentation is about the same, possibly in new baseline based on new diagnosis of dementia. He does not answer questions of orientation to person but recognizes that he is in the hospital. Patient does report that he has no pain and no problems and sometimes unwilling to answer questions. Pending MRI brain. Labs and vitals reviewed. Plan: -Pending MRI brain -Aspiration/seizure precautions -Continue with fluids for hypercalcemia -PTH and vitamin D 25-hydroxy ordered; f/up #Hypertensive Emergency #HTN Patient has history of hypertension. He may not be compliant on medication, Home medication is Amlodipine and Losartan. Plan -DC hydralazine -Continue nicardipine 20 mg twice daily -Holding Losartan in setting of NIC on CKD. #Social Service referral Family requests assistance with patient. Spoke with family at bedside who states that they are not able to fully take care of the patient at home. Plan: -Social Service referral for SNF placement -Pending placement #New onset ESRD #NIC on CKD #Hypercalcemia NIC on CKD likely secondary to declining dialysis despite requiring fluid removal with dialysis and decreased oral intake. Mild Hypercalcemia likely secondary to CKD. History of CKD who followed by Dr. Bedoya. GFR 18 (10/2023). BUN 37 increasing BUN 44 , Cr 3.9 improved to 3.7, CrCl 12.6, GFR 9 on presentation, now 16 GFR. Calcium today-10.5 Plan: -Continue to monitor calcium levels -Phophorus AM -given patients refusal for dialysis, restart home anti-hypertensive medication -Consider Avoiding nephrotoxins, given possible ESRD -Nephrology consulted, Dr. Bedoya, spoke with son who would like DNR with comfort care and rehab placement as patient cannot take in care of at home. No need for emergency dialysis. #Diabetes Mellitus Type 2, insulin dependent Chronic, uncontrolled History of DM on insulin, on Lantus. On admission glucose of 499, down trended with treatment to 238 A1c-10.4 Less likely DKA with beta-hydroxylase 1.1. Plan: -Insulin glargine 8 units -Sliding Scale -Bedside glucose check -Hypoglycemic protocol #HLD Patient has history of hyperlipidemia on atorvastatin. Plan: -Atorvastatin 40 mg PO HS Health Maintenance: Disp: Admitted for management of acute encephalopathy, pending MRI. FEN: NPO, pending speech evaluation DVT: SC heparin Code: DNR Case was discussed with senior resident Dr Uriostegui and attending physician, Dr Sabi Dela Cruz MD PGY-1
--- NOTE | 2024-02-04 16:09 | PD.NEPHPROG ---
Documentation for date of: 02/04/24 Subjective Subjective Interval history: Informant son Mr. Lundy is a 78-year-old gentleman with extensive past medical history of hypertension, diabetes, dyslipidemia, acid reflux, CKD stage IV (10/2023 GFR 18-has been declining dialysis) presented to the emergency department brought by the son with altered mental status and not feeling well for the last 48 hours. Patient has been very restless and altered that I got the information from his son on the phone. Apparently patient's appetite has been on the lower side. Denies any fever or chills. No nausea, vomiting. Denies any shortness of breath. Home medications included amlodipine, atorvastatin, Plavix, donepezil, furosemide, gemfibrozil, Lantus, losartan, metoprolol, Janumet, tamsulosin (not sure if he is taking) PCP is at [facility]. In the emergency department blood pressure 176/79, heart rate 52. Blood sugar 226. WBC 7.6, hemoglobin 12.4, platelets 165.Sodium 132, potassium 4.6, bicarbonate 24.7, BUN 41, creatinine 4.4, GFR 13, blood sugar 499, calcium 11.8, LFTs normal, ammonia level negative. Albumin 4.3, beta hydroxy 0.1, last PTH in October was 198. Urinalysis shows 2+ protein/4+ glucose. Head CT was negative for any stroke. Patient was Started on IV fluids and renal consultation requested for NIC by ER provider. 02/03/2024 patient currently seen in medical floor. He seems to be very confused still. Transportation Supervisor was used. Blood pressure 187/88, heart rate 68. Blood sugar 190. CBC normal. Sodium 141, potassium 4.4, BUN 44, creatinine 3.7, GFR 16, calcium improved to 11, phosphorus 3.9, LFTs normal, TSH normal, urine tox screen negative. Patient started to make urine he has a Wheeler catheter. Might benefit from going to rehab. Family requested comfort care and DNR yesterday. Continue with IV fluids. 02/04/2024 patient currently seen in medical floor. Still confused. Son at bedside. He is more alert and awake than yesterday. Sitter at bedside. Blood sugar 201. Blood pressure 132/68, heart rate 60. Hemoglobin 11.3, WBC 7.8, platelets 164. Sodium 141, potassium 3.6, BUN 34, creatinine 3.7, glucose 95, A1c 10.4, calcium 10.5, LFTs normal, total cholesterol 254, LDL 175 Review of Systems Review of Systems Narrative Review of Systems: Limited due to his confusion. More alert and awake than yesterday. Exam Vital Signs Temp Pulse Resp BP Pulse Ox O2 Del Method O2 Flow Rate 36.6 C 60 16 132/68 H 98 Room Air 3 02/04/24 13:00 02/04/24 13:00 02/04/24 13:00 02/04/24 13:00 02/04/24 13:00 02/04/24 13:00 02/02/24 23:23 Narrative Exam GENERAL APPEARANCE: Elderly gentleman currently seen in medical floor NECK: Neck supple, no JVD or bruit CARDIOVASCULAR: Heart regular, no murmurs LUNGS/CHEST: Chest clear to auscultation. No rales, rhonchi, wheezing ABDOMEN: Soft, nontender, nondistended. No masses. Normal bowel sounds. Has Wheeler catheter EXTREMITIES: No edema, clubbing or cyanosis. SKIN: Skin exam normal without any rashes MUSCULOSKELETAL in bed LYMPHATICS: No lymphadenopathy noted NEUROLOGICAL : patient is still confused although alert and awake Objective Labs 02/04/24 04:57 02/04/24 04:57 Labs: Laboratory Results - last 24 hr 02/04/24 04:57 WBC 7.8 RBC 3.96 L Hgb 11.3 L D Hct 33.7 L MCV 85 MCH 28.5 MCHC 33.5 RDW Std Deviation 43.7 Plt Count 164 Neut % (Auto) 68 Lymph % (Auto) 18 [place] % (Auto) 9 Eos % (Auto) 4 Baso % (Auto) 1 Neut # (Auto) 5.3 Lymph # (Auto) 1.4 [place] # (Auto) 0.7 Eos # (Auto) 0.3 Baso # (Auto) 0.0 Immature Gran # (Auto) 0.01 H Absolute Nucleated RBC 0.00 Immature Gran % 0 Nucleated RBC % 0 Sodium 141 Potassium 3.6 D Chloride 106 Carbon Dioxide 24.2 Anion Gap 11 BUN 34 H Creatinine 3.7 H Estim Creat Clear Calc 12.0 L eGFR 16 L BUN/Creatinine Ratio 9 L Glucose [address] Glu mg/dL 252 H Hemoglobin A1c 10.4 H Calculated Osmolality 288 Calcium 10.3 Corrected Calcium 10.5 H Phosphorus 3.7 Magnesium 1.6 Total Bilirubin 0.5 AST 16 ALT < 7 L Alkaline Phosphatase 64 Total Protein 6.0 Albumin 3.8 Globulin 2.2 L Albumin/Globulin Ratio 1.7 Triglycerides 251 H Cholesterol 254 H LDL Cholesterol, Calc 175 H HDL Cholesterol 29 L Cholesterol/HDL Ratio 8.8 H ABG Interpretation ABG results: 02/01/24 22:15 VBG pH 7.43 VBG pCO2 38 VBG pO2 47 VBG Base Excess 1 Assessment & Plan Assessment and plan (1) Acute renal failure (ARF): Status: Acute Assessment and plan: Acute renal failure secondary to prerenal azotemia. Secondary to decreased p.o. intake/severe hypercalcemia. Agree with continuing on IV fluids. Creatinine slowly improving. 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 Had a long conversation with son Galen over the phone-patient apparently has been declining dialysis. Son wants him to be DNR, comfort care and rehab placement. He cannot take care of him at home. (2) Altered mental status: Status: Acute Assessment and plan: Secondary to metabolic encephalopathy/hypercalcemia/hypertensive encephalopathy (3) Hypercalcemia: Status: Acute Assessment and plan: Secondary to dehydration. Will continue with fluids. Check PTH, vitamin D levels. Calcium 10.5 (4) Hypertension: Status: Acute Assessment and plan: Hypertension-add amlodipine Hold losartan (5) Diabetes: Status: Acute Assessment and plan: Accu-Cheks, sliding scale. Hold off on metformin (6) Hyperlipidemia: Status: Acute Assessment and plan: On Lipitor Additional Assessment & Plan Additional Plan: Thank you Dr. Celestin for allowing me to participate in the care of Mr. Lundy Spoke to primary team-pending rehab with hospice.
[2024-02-04] MEDS: MEMANTINE HCL 5 MG TABLET 10 MG PO (17:29)
[2024-02-04] MEDS: INSULIN LISPRO (AdmeLOG) 1 UNIT/0.01 ML UNIT SC (17:29)
[2024-02-04] MEDS: QUEtiapine FUMARATE 25 MG TABLET 12.5 MG PO (20:05)
[2024-02-04] MEDS: ATORVASTATIN CALCIUM 20 MG TABLET 40 MG PO (20:05)
[2024-02-05] VITALS (14 sets, daily range): BP systolic 140–169; BP diastolic 59–96; PULSE 56–86; RESP 14–97; TEMP 36.4–37.2; O2SAT 96–100; BMI 21.4
[2024-02-05 01:55] LABS: Parathyroid Hormone Intact 23.2 pg/ml (18.5-88.0)
[2024-02-05] MEDS: HEPARIN SOD INJ 5000 UNIT/ML VIAL SC (02:13)
[2024-02-05 05:31] LABS: Basophils # (Auto) 0.1 Thou/mm3 (0.0-0.2); Basophils % (Auto) 1 % (0-2.5); Eosinophils # (Auto) 0.3 Thou/mm3 (0.0-0.5); Eosinophils % (Auto) 4 % (0-10); Hematocrit 31.6 % (41.0-53.0); Hemoglobin 10.5 g/dL (13.5-16.0); Immature Granulocytes % (Auto) 1 % (0-0); Immature Granulocytes Auto 0.03 Thou/mm3 (0.00-0.00); Lymphocytes # (Auto) 1.5 Thou/mm3 (1.0-4.8); Lymphocytes % (Auto) 24 % (10-50); Mean Corpuscular HGB Conc 33.2 g/dl (31.0-37.0); Mean Corpuscular Hemoglobin 28.5 pg (25.0-35.0); Mean Corpuscular Volume 86 fL (80-100); Monocytes # (Auto) 0.8 Thou/mm3 (0.0-0.8); Monocytes % (Auto) 12 % (0-12); Neutrophils # (Auto) 3.7 Thou/mm3 (1.8-7.7); Neutrophils % (Auto) 59 % (37-80); Nucleated Red Blood Cell % 0 /100 WBC (0); Platelet Count 152 Thou/mm3 (140-440); Red Blood Count 3.69 Miln/mm3 (4.50-5.90); White Blood Count 6.3 Thou/mm3 (3.8-10.6)
[2024-02-05 06:29] LABS: Alanine Aminotransferase < 7 U/L (10-49); Albumin, Serum 3.5 gm/dL (3.4-4.8); Albumin/Globulin Ratio 1.7 (1.2-2.2); Alkaline Phosphatase 60 U/L (46-116); Anion Gap 9 (7-16); Aspartate Amino Transferase 13 U/L (0-34); BUN/Creatinine Ratio 8 Ratio (12-20); Bilirubin,Total 0.5 mg/dL (0.3-1.2); Blood Urea Nitrogen 34 mg/dL (9-23); Calcium 9.9 mg/dL (8.3-10.6); Calcium (Corrected) 10.3 mg/dL (8.5-10.1); Carbon Dioxide 25.3 mMol/L (20.0-31.0); Chloride 105 mMol/L (98-107); Creatinine (Component) 4.1 mg/dL (0.6-1.3); Estimated Creatinine Clearance 10.7 mL/min (>60); Globulin 2.1 gm/dL (2.3-3.5); Glucose 197 mg/dL (74-106); Magnesium 1.7 mg/dL (1.6-2.6); Osmolality,Calculated 290 (275-295); Phosphorous 3.7 mg/dL (2.4-5.1); Potassium 3.4 mMol/L (3.4-5.1); Sodium 139 mMol/L (136-145); Total Protein 5.6 gm/dL (5.7-8.2); eGFR 14 See Note
[2024-02-05] MEDS: INSULIN LISPRO (AdmeLOG) 1 UNIT/0.01 ML UNIT SC ×2 (08:06→11:49)
[2024-02-05] MEDS: INSULIN GLARGINE (Lantus) 5 UNIT/0.05 ML (PER 5 UNITS) 10 UNIT SC (08:07)
--- NOTE | 2024-02-05 09:19 | PD.NEPHPROG ---
Documentation for date of: 02/05/24 Subjective Subjective Interval history: Informant son Mr. Lundy is a 78-year-old gentleman with extensive past medical history of hypertension, diabetes, dyslipidemia, acid reflux, CKD stage IV (10/2023 GFR 18-has been declining dialysis) presented to the emergency department brought by the son with altered mental status and not feeling well for the last 48 hours. Patient has been very restless and altered that I got the information from his son on the phone. Apparently patient's appetite has been on the lower side. Denies any fever or chills. No nausea, vomiting. Denies any shortness of breath. Home medications included amlodipine, atorvastatin, Plavix, donepezil, furosemide, gemfibrozil, Lantus, losartan, metoprolol, Janumet, tamsulosin (not sure if he is taking) PCP is at [facility]. In the emergency department blood pressure 176/79, heart rate 52. Blood sugar 226. WBC 7.6, hemoglobin 12.4, platelets 165.Sodium 132, potassium 4.6, bicarbonate 24.7, BUN 41, creatinine 4.4, GFR 13, blood sugar 499, calcium 11.8, LFTs normal, ammonia level negative. Albumin 4.3, beta hydroxy 0.1, last PTH in October was 198. Urinalysis shows 2+ protein/4+ glucose. Head CT was negative for any stroke. Patient was Started on IV fluids and renal consultation requested for NIC by ER provider. 02/03/2024 patient currently seen in medical floor. He seems to be very confused still. Meteorology Faculty Member was used. Blood pressure 187/88, heart rate 68. Blood sugar 190. CBC normal. Sodium 141, potassium 4.4, BUN 44, creatinine 3.7, GFR 16, calcium improved to 11, phosphorus 3.9, LFTs normal, TSH normal, urine tox screen negative. Patient started to make urine he has a Wheeler catheter. Might benefit from going to rehab. Family requested comfort care and DNR yesterday. Continue with IV fluids. 02/04/2024 patient currently seen in medical floor. Still confused. Son at bedside. He is more alert and awake than yesterday. Sitter at bedside. Blood sugar 201. Blood pressure 132/68, heart rate 60. Hemoglobin 11.3, WBC 7.8, platelets 164. Sodium 141, potassium 3.6, BUN 34, creatinine 3.7, glucose 95, A1c 10.4, calcium 10.5, LFTs normal, total cholesterol 254, LDL 175 02/05/2024 patient currently seen in medical floor. Still on and off confusion noted. Sitter at bedside. Labs, medications reviewed. Pending placement. Hemoglobin 10.5. Creatinine 4.1, GFR 14. Patient declined dialysis. Not much to be offered. He will be going to hospice at a rehab Review of Systems Review of Systems Narrative Review of Systems: Limited due to his confusion. More alert and awake than yesterday. Exam Vital Signs Temp Pulse Resp BP Pulse Ox O2 Del Method O2 Flow Rate 37.2 C 80 18 169/78 H 100 Room Air 3 02/05/24 07:08 02/05/24 07:31 02/05/24 07:31 02/05/24 07:08 02/05/24 07:08 02/05/24 07:08 02/02/24 23:23 Narrative Exam GENERAL APPEARANCE: Elderly gentleman currently seen in medical floor NECK: Neck supple, no JVD or bruit CARDIOVASCULAR: Heart regular, no murmurs LUNGS/CHEST: Chest clear to auscultation. No rales, rhonchi, wheezing ABDOMEN: Soft, nontender, nondistended. No masses. Normal bowel sounds. Has Wheeler catheter EXTREMITIES: No edema, clubbing or cyanosis. SKIN: Skin exam normal without any rashes MUSCULOSKELETAL in bed LYMPHATICS: No lymphadenopathy noted NEUROLOGICAL : patient is still confused although alert and awake Objective Labs 02/05/24 04:12 02/05/24 04:12 Labs: Laboratory Results - last 24 hr 02/04/24 02/05/24 04:57 04:12 WBC 6.3 RBC 3.69 L Hgb 10.5 L Hct 31.6 L MCV 86 MCH 28.5 MCHC 33.2 RDW Std Deviation 44.0 H Plt Count 152 Neut % (Auto) 59 Lymph % (Auto) 24 [place] % (Auto) 12 Eos % (Auto) 4 Baso % (Auto) 1 Neut # (Auto) 3.7 Lymph # (Auto) 1.5 [place] # (Auto) 0.8 Eos # (Auto) 0.3 Baso # (Auto) 0.1 Immature Gran # (Auto) 0.03 H Absolute Nucleated RBC 0.00 Immature Gran % 1 H Nucleated RBC % 0 Sodium 139 Potassium 3.4 Chloride 105 Carbon Dioxide 25.3 Anion Gap 9 BUN 34 H Creatinine 4.1 H* Estim Creat Clear Calc 10.7 L eGFR 14 L* BUN/Creatinine Ratio 8 L Glucose 197 H D Calculated Osmolality 290 Calcium 9.9 Corrected Calcium 10.3 H Phosphorus 3.7 Magnesium 1.7 Total Bilirubin 0.5 AST 13 ALT < 7 L Alkaline Phosphatase 60 Total Protein 5.6 L Albumin 3.5 Globulin 2.1 L Albumin/Globulin Ratio 1.7 PTH Intact 23.2 ABG Interpretation ABG results: 02/01/24 22:15 VBG pH 7.43 VBG pCO2 38 VBG pO2 47 VBG Base Excess 1 Assessment & Plan Assessment and plan (1) Acute renal failure (ARF): Status: Acute Assessment and plan: Acute renal failure secondary to prerenal azotemia. Secondary to decreased p.o. intake/severe hypercalcemia. Agree with continuing on IV fluids. 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 Had a long conversation with son Galen over the phone-patient apparently has been declining dialysis. Son wants him to be DNR, comfort care and rehab placement. He cannot take care of him at home. At this point a renal has not much to offer. Will sign off. Can be discharged to rehab with hospice. (2) Altered mental status: Status: Acute Assessment and plan: Secondary to metabolic encephalopathy/hypercalcemia/hypertensive encephalopathy (3) Hypercalcemia: Status: Acute Assessment and plan: Secondary to dehydration. Will continue with fluids. Check PTH, vitamin D levels. Calcium 10.3 (4) Hypertension: Status: Acute Assessment and plan: Hypertension-add amlodipine Hold losartan (5) Diabetes: Status: Acute Assessment and plan: Accu-Cheks, sliding scale. Hold off on metformin (6) Hyperlipidemia: Status: Acute Assessment and plan: On Lipitor Additional Assessment & Plan Additional Plan: Thank you Dr. Celestin for allowing me to participate in the care of Mr. Lundy Spoke to primary team-pending rehab with hospice. Renal will sign off. Patient has been declining dialysis. Son agreed for him to go to hospice Quality - progress note Quality Measures Quality Measures: VTE prophylaxis Reason for Continued Stay Reason for Continued Stay: further monitoring
[2024-02-05] MEDS: DONEPEZIL HCL 5 MG TABLET 10 MG PO (09:50)
[2024-02-05] MEDS: niCARdipine 20 MG CAPSULE PO ×2 (09:50→20:28)
[2024-02-05] MEDS: CLOPIDOGREL BISULFATE 75 MG TABLET PO (09:51)
[2024-02-05] MEDS: TAMSULOSIN HCL 0.4 MG CAPSULE PO (09:51)
[2024-02-05] MEDS: MEMANTINE HCL 5 MG TABLET 10 MG PO (09:51)
[2024-02-05] MEDS: PANTOPRAZOLE 40 MG TABLET PO (09:51)
[2024-02-05] MEDS: METOPROLOL SUCCINATE XL 25 MG TABCR 50 MG PO (09:51)
--- NOTE | 2024-02-05 10:09 | PC.SS ---
Addendum entered by YVONNE Taveras 02/05/24 16:08: Updated bed side nurse, [facility] staff Arianna Martinez with [facility] and patient's son Galen. Addendum entered by YVONNE Taveras 02/05/24 16:04: [place] ETA 1930 Addendum entered by YVONNE Taveras 02/05/24 15:22: updated hospice referral sent to [facility] via [facility]. Provided voicemail to Arianna with [facility] to notify of patient's discharge for today. Addendum entered by YVONNE Taveras 02/05/24 15:19: Patient's son is agreeable with discharge to [facility] today with [facility] services. Contacted Michelle with [facility] to make aware. Transportation with [facility] reference [id number]. Pending ETA for transport. Original Note: AGRICULTURAL AGENT spoke with patient's son Galen ([phone]) to discuss the discharge plan. Galen is agreeable with [facility] SNF- followed by [facility]. Spoke with Michelle from [facility], she is agreeable with accepting the patient followed by [facility].
--- NOTE | 2024-02-05 10:31 | PC.SS ---
Received call from [facility] manager title-Marino Walker. Level 2 to be closed.
--- NOTE | 2024-02-05 11:57 | PC.PT ---
Patient is referred to hospice, Will cancel PT evaluation.
--- NOTE | 2024-02-05 14:56 | ESDS_ITS ---
Planned Discharge Date 02/05/24 DS: Providers Provider Date of admission: 02/02/24 22:22 Primary care physician: CHRISTINA Gay Admitting Provider: Sukhdeep Shetty MD Attending Provider on Admission: Octavio Celesitn MD Consults: 02/02/24 19:25 Referral Discharge Planning Stat Comment: hospice care 02/02/24 19:26 Referral Hospice Stat Comment: [facility] 02/02/24 19:28 Consult to Nephrology Stat Comment: CKD, Hypercalcemia Consulting Provider: Sonam Bedoya 02/02/24 22:36 Referral Speech Therapy Stat Comment: Instructions: Please do Swallow Evaluation on patient, worsening altered mental status. Hx of Dementia. 02/04/24 10:44 Referral Hospice Routine Comment: Attending Provider on DC: Phil Connell DO Discharging Provider: Phil Connell DO DS: Diagnosis Problem List Completed Was Problem List Reviewed/Reconciled?: Yes Hospital Course Hospital Course Hospital course: The patient is an 78-year-old male with a past medical history of hypertension, type II DM, hyperlipidemia, CKD stage IV being followed by nephrology but declined dialysis, history of dementia who presented to the ED on 02/02/2024 with altered mental status per family members. ED course was significant for some hypertension, BUN and creatinine levels within CKD 4 range, hyperglycemia and hypercalcemia. UA and U tox were negative. 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 The patient was admitted for management of acute encephalopathy and hypertensive urgency versus emergency. During the course of hospitalization, a conversation was had between family members and performing arts road manager Dr. Bedoya and patient's family extensively talked about how they can no longer take care of the patient after decision was made for the patient to be considered for SNF placement with hospice and CODE STATUS was changed to DNR. The patient was given IV fluids for hydration in the setting of dehydration and hypercalcemia to correct acute on chronic kidney disease. Mentation improved and patient looks to be back at baseline. Today, the patient is clinically and hemodynamically stable and medically cleared for discharge to SNF with hospice services. All medications continued as prescribed. 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 #History of type II DM Case was discussed with attending physician, Dr Ko Dela Cruz MD PGY-1 Status at Discharge Overall status at discharge: patient is progressing back to baseline Time Spent with Patient Time attestation: Total time spent providing and/or coordinating discharge services:more than 30minutes Exam Vital Signs Temp Pulse Resp BP Pulse Ox O2 Del Method O2 Flow Rate 97.9 F 63 18 140/71 H 96 Room Air 3 02/05/24 12:00 02/05/24 12:00 02/05/24 12:00 02/05/24 12:00 02/05/24 12:00 02/05/24 12:00 02/02/24 23:23 Narrative Exam GENERAL: AAOX1 NEURO: CAUSTIC MIXER grossly intact, moves extremities x4 HEENT: Dry mucosa. Eyes open, symmetrical, & clear CARDIO: No chest pain on palpation. Heart RRR, no obvious murmurs PULM: No noted coughing/dyspnea. Lungs CTA B/L GI: Abdomen soft, nondistended, no pain on palpation. BSx4 URO/DIALS INSPECTOR:: No further abnormalities noted. SKIN/MSK/EXT: No wounds/rashes/edema/amputations, no pain on palpation. Pedal pulses present B/L Discharge Plan Plan Patient Disposition: Home w/HOSPICE Disposition Comment: Facility with hospice Patient condition on transfer: Stable Care Plan Goals: Discharged to a facility with hospice Follow up with PCP within one week of discharge Continue all medications as prescribed Prescriptions/Referrals Prescriptions/Med Rec: Continued tamsulosin 0.4 mg capsule 0.8 mg PO QHS losartan 50 mg Tablet 50 mg PO QDAY hydroxyzine HCl 25 mg tablet 25 mg PO HS Patient Comments: TAKE 1 TABLET BY MOUTH AT NIGHT Gemtesa 75 mg tablet 75 mg PO QDAY ergocalciferol (vitamin D2) 1,250 mcg (50,000 unit) capsule 1,250 mcg PO QWEEK Patient Comments: TAKE 1 CAPSULE BY MOUTH ONCE A WEEK VITAMIN metoprolol succinate 50 mg tablet extended release 24 hr 50 mg PO QPM Patient Comments: TAKE 1 TABLET BY MOUTH AT NIGHT FOR BLOOD PRESSURE famotidine 40 mg tablet 40 mg PO HS Patient Comments: TAKE 1 TABLET BY MOUTH EVERY DAY AT BEDTIME meclizine 12.5 mg tablet 12.5 mg PO BID Patient Comments: TAKE 1 TABLET BY MOUTH TWICE DAILY NEEDED FOR VERTIGO ferrous sulfate [FeroSul] 325 mg (65 mg iron) tablet 325 mg PO BID Patient Comments: TAKE 1 TABLET BY MOUTH TWICE DAILY BEFORE MEAL(S) calcitriol 0.5 mcg capsule 0.5 mcg PO BID Patient Comments: TAKE 1 CAPSULE BY MOUTH TWICE DAILY gabapentin 100 mg capsule 100 mg PO HS Patient Comments: TAKE 1 CAPSULE BY MOUTH ONCE DAILY AT NIGHT FOR PAIN Humulin R Regular U-100 Insuln 100 unit/mL solution 5 unit subcut TIDWM Patient Comments: INJECT 5 UNITS SUBCUTANEOUSLY THREE TIMES DAILY BEFORE MEAL(S) insulin glargine U-300 conc [Toujeo SoloStar U-300 Insulin] 300 unit/mL (1.5 mL) insulin pen 10 unit SUBCUT QDAY Patient Comments: INJECT 10 UNITS SUBCUTANEOUSLY ONCE DAILY IN THE MORNING FOR DIABETES Referrals: Shelly Quinones FNP [Primary Care Provider] - Patient/Caregiver Discharge Instructions Print Language: Turkmen Stand Alone Forms: Yanna Award Info., Patient Portal Info Letter Discharge Order Discharge Orders: Discharge (Routine); Ordered 02/05/24 Ordered By: Morales Dela Cruz Quality Discharge Quality Measures VTE prophylaxis MD Attestestation MD Attestation I have discussed and was present for the essential components of the discharge history, physical examination, diagnosis, and discharge treatment plan with the resident. I agree with the patient's discharge care as documented by the resident and amended herein by me. Wilson Connell DO. Patient will be discharged to hospice at SNF. Will contact family and relay disposition plan. Patient cleared for discharge today. Although this document has been carefully reviewed, there may still be some phonetic and other typographical errors. These errors are purely grammatical due to imperfections in the software program and should not be construed in any way to compromise the substance of the patient's medical care during this visit.
--- NOTE | 2024-02-05 16:08 | PC.NURSE ---
Report called to Melanie Nieves at [facility]. transport scheduled for 1929 pickup time
--- NOTE | 2024-02-05 19:45 | PC.NURSE ---
PATIENT SON REFUSED PATIENT TO GO TO [facility].DR. MORGAN MADE AWARE THROUGH PHONE,PROMISED TO INFORM DAY SHIFT MD ON DUTY.
[2024-02-05] MEDS: ATORVASTATIN CALCIUM 20 MG TABLET 40 MG PO (20:27)
[2024-02-05] MEDS: QUEtiapine FUMARATE 25 MG TABLET 12.5 MG PO (20:28)
[2024-02-06] VITALS (13 sets, daily range): BP systolic 142–191; BP diastolic 64–85; PULSE 55–81; RESP 16–95; TEMP 36.1–36.7; O2SAT 94–99
[2024-02-06] MEDS: HEPARIN SOD INJ 5000 UNIT/ML VIAL SC (02:02)
[2024-02-06 05:38] LABS: Basophils % (Auto) 1 % (0-2.5); Eosinophils # (Auto) 0.3 Thou/mm3 (0.0-0.5); Eosinophils % (Auto) 5 % (0-10); Hematocrit 33.6 % (41.0-53.0); Hemoglobin 11.1 g/dL (13.5-16.0); Immature Granulocytes % (Auto) 1 % (0-0); Immature Granulocytes Auto 0.03 Thou/mm3 (0.00-0.00); Lymphocytes # (Auto) 1.6 Thou/mm3 (1.0-4.8); Lymphocytes % (Auto) 24 % (10-50); Mean Corpuscular Volume 85 fL (80-100); Monocytes # (Auto) 0.7 Thou/mm3 (0.0-0.8); Monocytes % (Auto) 11 % (0-12); Neutrophils # (Auto) 3.9 Thou/mm3 (1.8-7.7); Neutrophils % (Auto) 60 % (37-80); Nucleated Red Blood Cell % 0 /100 WBC (0); Platelet Count 155 Thou/mm3 (140-440); RDW Standard Deviation 43.3 fL (35.1-43.9); Red Blood Count 3.96 Miln/mm3 (4.50-5.90); White Blood Count 6.5 Thou/mm3 (3.8-10.6)
[2024-02-06 06:31] LABS: Alanine Aminotransferase < 7 U/L (10-49); Albumin, Serum 3.7 gm/dL (3.4-4.8); Albumin/Globulin Ratio 1.7 (1.2-2.2); Alkaline Phosphatase 62 U/L (46-116); Anion Gap 9 (7-16); Aspartate Amino Transferase 13 U/L (0-34); BUN/Creatinine Ratio 9 Ratio (12-20); Bilirubin,Total 0.6 mg/dL (0.3-1.2); Blood Urea Nitrogen 35 mg/dL (9-23); Calcium 10.2 mg/dL (8.3-10.6); Calcium (Corrected) 10.4 mg/dL (8.5-10.1); Carbon Dioxide 25.4 mMol/L (20.0-31.0); Chloride 105 mMol/L (98-107); Estimated Creatinine Clearance 10.9 mL/min (>60); Globulin 2.2 gm/dL (2.3-3.5); Glucose 191 mg/dL (74-106); Magnesium 1.6 mg/dL (1.6-2.6); Osmolality,Calculated 290 (275-295); Phosphorous 3.2 mg/dL (2.4-5.1); Potassium 3.5 mMol/L (3.4-5.1); Sodium 139 mMol/L (136-145); Total Protein 5.9 gm/dL (5.7-8.2); eGFR 14 See Note
[2024-02-06 07:34] LABS: Vitamin D 25 Hydroxy Total 62.5 ng/mL (7.3-40.2)
[2024-02-06] MEDS: INSULIN LISPRO (AdmeLOG) 1 UNIT/0.01 ML UNIT SC (07:59)
[2024-02-06] MEDS: MEMANTINE HCL 5 MG TABLET 10 MG PO (08:00)
[2024-02-06] MEDS: niCARdipine 20 MG CAPSULE PO ×2 (08:00→20:46)
[2024-02-06] MEDS: DONEPEZIL HCL 5 MG TABLET 10 MG PO (08:00)
[2024-02-06] MEDS: TAMSULOSIN HCL 0.4 MG CAPSULE PO (08:01)
[2024-02-06] MEDS: PANTOPRAZOLE 40 MG TABLET PO (08:01)
[2024-02-06] MEDS: METOPROLOL SUCCINATE XL 25 MG TABCR 50 MG PO (08:01)
[2024-02-06] MEDS: INSULIN GLARGINE (Lantus) 5 UNIT/0.05 ML (PER 5 UNITS) 10 UNIT SC (08:01)
[2024-02-06] MEDS: CLOPIDOGREL BISULFATE 75 MG TABLET PO (08:01)
--- NOTE | 2024-02-06 08:57 | PC.SS ---
Addendum entered by YVONNE Taveras 02/06/24 16:07: Received call from Mary at [facility]. Informed they can not accept the patient as he has a sitter in place unless patient has 24hrs or more with out a sitter. Updated bed side nurse Nhung, who informs patient has not had any behaviors the last two day. Patient's sitter informs the same. Updated Dr. Uriostegui on the request by [facility]. Informs they will discuss to discontinue patient's sitter. Updated Arianna at [facility] and patient's son Galen Grullon. Addendum entered by YVONNE Taveras 02/06/24 14:28: Updated patient's son Galen, states he will give field underwriter a call back with an update. Addendum entered by YVONNE Taveras 02/06/24 14:21: Contacted Mary at [facility] for an update, informs DON has not reviewed referral yet. Mary to update field underwriter withing the next 20min with response. Spoke with Salma at [facility] they can accept the patient under comfort measures only as there is no hospice bed available with them. Addendum entered by YVONNE Taveras 02/06/24 12:41: Provided update to patient's son, Galen. Accepting facilities are: [facility] and [facility]. [facility] is considering and no response from [facility]. Attempted contact with Carolin at [facility], no answer voicemail provided. Spoke with Susan at [facility] and she informs referral is pending DON to review. Updated patient's son, informed him about [facility], states he will look into that facility. Addendum entered by YVONNE Taveras 02/06/24 09:09: Re-sent SNF inquiry out via [employer]. Pending responses. Referral also sent to [facility]. Original Note: SS follow up: spoke with patient's son, Galen Grullon ([phone]). He informs he refused discharge to [facility] late yesterday evening as he visited the facility and was unhappy with the care. Galen informs he wants to proceed with a different facility ([facility] or [facility]) if they have a bed open and willing to accept the patient. Notified Arianna from [facility] and Michelle from [facility] to make aware.
[2024-02-06] MEDS: Magnesium Sulfate 2 GM Ivpb 2 GM/50 ML BAG IV (12:02)
--- NOTE | 2024-02-06 12:30 | PD.RESDS ---
Planned Discharge Date 02/06/24 DS: Providers Provider Date of admission: 02/02/24 22:22 Primary care physician: CHRISTINA Gay Admitting Provider: Sukhdeep Shetty MD Attending Provider on Admission: Branden Crow MD Consults: 02/02/24 19:25 Referral Discharge Planning Stat Comment: hospice care 02/02/24 19:26 Referral Hospice Stat Comment: [facility] 02/02/24 19:28 Consult to Nephrology Stat Comment: CKD, Hypercalcemia Consulting Provider: Sonam Bedoya 02/02/24 22:36 Referral Speech Therapy Stat Comment: Instructions: Please do Swallow Evaluation on patient, worsening altered mental status. Hx of Dementia. 02/04/24 10:44 Referral Hospice Routine Comment: Attending Provider on DC: Azul Torre MD Discharging Provider: Azul Torre MD Hospital Course Hospital Course Hospital course: The patient is an 78-year-old male with a past medical history of hypertension, type II DM, hyperlipidemia, CKD stage IV being followed by nephrology but declined dialysis, history of dementia who presented to the ED on 02/02/2024 with altered mental status per family members. ED course was significant for some hypertension, BUN and creatinine levels within CKD 4 range, hyperglycemia and hypercalcemia. UA and U tox were negative. 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 The patient was admitted for management of acute encephalopathy and hypertensive urgency versus emergency. During the course of hospitalization, a conversation was had between family members and solar sales representative Dr. Bedoya and patient's family extensively talked about how they can no longer take care of the patient after decision was made for the patient to be considered for SNF placement with hospice and CODE STATUS was changed to DNR. The patient was given IV fluids for hydration in the setting of dehydration and hypercalcemia to correct acute on chronic kidney disease. Mentation improved and patient looks to be back at baseline. Today, the patient is clinically and hemodynamically stable and medically cleared for discharge to SNF with hospice services. All medications continued as prescribed. #Acute encephalopathy #Hypercalcemia #Hyperglycemia #Hypertensive emergency versus urgency #NIC on CKD #History of type II DM Case was discussed with attending physician, Dr Ko Dela Cruz MD PGY-1 Time Spent with Patient Time attestation: Total time spent providing and/or coordinating discharge services: Exam Vital Signs Temp Pulse Resp BP Pulse Ox O2 Del Method O2 Flow Rate 97.5 F 60 16 176/85 H 96 Room Air 3 02/06/24 11:35 02/06/24 11:35 02/06/24 11:35 02/06/24 11:35 02/06/24 11:35 02/06/24 07:56 02/05/24 20:00 Discharge Plan Plan Patient Disposition: Home w/HOSPICE Disposition Comment: Facility with hospice Patient condition on transfer: Stable Care Plan Goals: Discharged to a facility with hospice Follow up with PCP within one week of discharge Continue all medications as prescribed Prescriptions/Referrals Prescriptions/Med Rec: Continued tamsulosin 0.4 mg capsule 0.8 mg PO QHS losartan 50 mg Tablet 50 mg PO QDAY hydroxyzine HCl 25 mg tablet 25 mg PO HS Patient Comments: TAKE 1 TABLET BY MOUTH AT NIGHT Gemtesa 75 mg tablet 75 mg PO QDAY ergocalciferol (vitamin D2) 1,250 mcg (50,000 unit) capsule 1,250 mcg PO QWEEK Patient Comments: TAKE 1 CAPSULE BY MOUTH ONCE A WEEK VITAMIN metoprolol succinate 50 mg tablet extended release 24 hr 50 mg PO QPM Patient Comments: TAKE 1 TABLET BY MOUTH AT NIGHT FOR BLOOD PRESSURE famotidine 40 mg tablet 40 mg PO HS Patient Comments: TAKE 1 TABLET BY MOUTH EVERY DAY AT BEDTIME meclizine 12.5 mg tablet 12.5 mg PO BID Patient Comments: TAKE 1 TABLET BY MOUTH TWICE DAILY NEEDED FOR VERTIGO ferrous sulfate [FeroSul] 325 mg (65 mg iron) tablet 325 mg PO BID Patient Comments: TAKE 1 TABLET BY MOUTH TWICE DAILY BEFORE MEAL(S) calcitriol 0.5 mcg capsule 0.5 mcg PO BID Patient Comments: TAKE 1 CAPSULE BY MOUTH TWICE DAILY gabapentin 100 mg capsule 100 mg PO HS Patient Comments: TAKE 1 CAPSULE BY MOUTH ONCE DAILY AT NIGHT FOR PAIN Humulin R Regular U-100 Insuln 100 unit/mL solution 5 unit subcut TIDWM Patient Comments: INJECT 5 UNITS SUBCUTANEOUSLY THREE TIMES DAILY BEFORE MEAL(S) insulin glargine U-300 conc [Toujeo SoloStar U-300 Insulin] 300 unit/mL (1.5 mL) insulin pen 10 unit SUBCUT QDAY Patient Comments: INJECT 10 UNITS SUBCUTANEOUSLY ONCE DAILY IN THE MORNING FOR DIABETES Referrals: Shelly Quinones FNP [Primary Care Provider] - Patient/Caregiver Discharge Instructions Education Materials: Cognitive Impairment Mild, Dementia Caregiver Tips Print Language: Djiboutian Stand Alone Forms: Yanna Award Info., Patient Portal Info Letter Discharge Order Discharge Orders: Discharge (Routine); Ordered 02/06/24 Ordered By: Burt Uriostegui
--- NOTE | 2024-02-06 16:10 | PC.NURSE ---
1610- As of this time, pt no longer needs a sitter per MD
--- NOTE | 2024-02-06 16:31 | ESPR_ITS ---
<Statement entered by Branden Crow MD - 02/11/24 16:32> I reviewed above note and agree with findings and plans. I have also personally examined the patient with medicine team and went over assessment and plan with medical team including international coordinator and resident physician. <Statement entered by Burt Uriostegui DO - 02/06/24 19:51> Senior attestation: Patient was examined and case was reviewed with team including attending physician. Note reviewed, I agree with most of its contents and agree with the patient's care. Pending SNF hospice placement. Will hold on one-to-one sitter for next 24 hours in preparation for SNF acceptance. Burt Uriostegui DO PGY-3 Documentation for date of: 02/06/24 Subjective Subjective Interval history: No acute overnight events. Patient seen and examined at bedside. Pain appears confabulated and make clear sense while talking. He states that he wants to go home soon. Continue with nicardipine for hypertension. Pending placement to SNF. He was ready to discharge to [facility] but patient's son refused that SNF; son prefers [facility] or [facility]. Stopped one-to-one sitter as patient needs 24 hours without a sitter to be excepted/transition to SNF; patient has been cooperative and has not showed any behavioral problems- therefore no longer needs sitter. Exam Vital Signs Temp Pulse Resp BP Pulse Ox O2 Del Method O2 Flow Rate 97.0 F 60 19 175/80 H 94 L Room Air 3 02/06/24 16:00 02/06/24 16:00 02/06/24 16:00 02/06/24 16:00 02/06/24 16:00 02/06/24 16:00 02/05/24 20:00 Narrative Exam GENERAL: well develope in no acute distress. NEURO: HOME OFFICE CLAIM SPECIALIST grossly intact, moves extremities x4 HEENT: Dry mucosa. Eyes open, symmetrical, & clear. CARDIO: No chest pain on palpation. Heart RRR, no obvious murmurs PULM: No noted coughing/dyspnea. Lungs CTA B/L GI: Abdomen soft, nondistended, no pain on palpation. BSx4 URO/REGIONAL RETAIL SALES MANAGER:: No further abnormalities noted. SKIN/MSK/EXT: No wounds/rashes/edema/amputations, no pain on palpation. Pedal pulses present B/L Objective Labs 02/07/24 08:30 02/07/24 08:30 Labs: Laboratory Results - last 24 hr 02/06/24 04:52 WBC 6.5 RBC 3.96 L Hgb 11.1 L Hct 33.6 L MCV 85 MCH 28.0 MCHC 33.0 RDW Std Deviation 43.3 Plt Count 155 Neut % (Auto) 60 Lymph % (Auto) 24 Jewell % (Auto) 11 Eos % (Auto) 5 Baso % (Auto) 1 Neut # (Auto) 3.9 Lymph # (Auto) 1.6 Jewell # (Auto) 0.7 Eos # (Auto) 0.3 Baso # (Auto) 0.0 Immature Gran # (Auto) 0.03 H Absolute Nucleated RBC 0.00 Immature Gran % 1 H Nucleated RBC % 0 Sodium 139 Potassium 3.5 Chloride 105 Carbon Dioxide 25.4 Anion Gap 9 BUN 35 H Creatinine 4.0 H Estim Creat Clear Calc 10.9 L eGFR 14 L* BUN/Creatinine Ratio 9 L Glucose 191 H Calculated Osmolality 290 Calcium 10.2 Corrected Calcium 10.4 H Phosphorus 3.2 Magnesium 1.6 Total Bilirubin 0.6 AST 13 ALT < 7 L Alkaline Phosphatase 62 Total Protein 5.9 Albumin 3.7 Globulin 2.2 L Albumin/Globulin Ratio 1.7 25-OH Vitamin D Total 62.5 H ABG Interpretation ABG results: 02/01/24 22:15 VBG pH 7.43 VBG pCO2 38 VBG pO2 47 VBG Base Excess 1 Quality Measures Quality Measures VTE prophylaxis Advance care planning discussed with:: patient Assessment & Plan Assessment Current Active Medications: Generic Name Dose Route Start Last Admin Trade Name Janki PRN Reason Stop Dose Admin Acetaminophen 650 mg 02/02/24 22:22 02/04/24 08:32 Acetaminophen 325 Mg Tablet PO 03/03/24 22:21 650 mg Q6H PRN Administration Mild Pain 1-3 or Fever >100.4 Atorvastatin Calcium 40 mg 02/02/24 21:00 02/05/24 20:27 Atorvastatin Calcium 20 Mg Tablet PO 03/03/24 20:59 40 mg HS XIOMY Administration Clopidogrel Bisulfate 75 mg 02/03/24 09:00 02/06/24 08:01 Clopidogrel Bisulfate 75 Mg Tablet PO 03/04/24 08:59 75 mg QDAY XIOMY Administration Dextrose 25 ml 02/02/24 22:37 Dextrose 50%-Water Inj 50 Ml Syringe IV 03/03/24 22:36 Q15MIN PRN BG 50-70 responsive npo pt Dextrose 50 ml 02/02/24 22:37 Dextrose 50%-Water Inj 50 Ml Syringe IV 03/03/24 22:36 Q15MIN PRN BG <50 OR BG <70 & pt unresponsive Donepezil HCl 10 mg 02/03/24 09:00 02/06/24 08:00 Donepezil Hcl 5 Mg Tablet PO 03/04/24 08:59 10 mg QDAY XIOMY Administration Glucagon 1 mg 02/02/24 22:37 Glucagon Inj 1 Mg Vial IM Q15MIN PRN BG <70, and no IV access Heparin Sodium (Porcine) 5,000 unit 02/04/24 13:30 02/06/24 13:11 Heparin Sod Inj 5000 Unit/Ml Vial SC 02/18/24 13:29 Not Given Q12H XIOMY Hydralazine HCl 10 mg 02/03/24 09:06 02/04/24 05:12 Hydralazine Inj 20 Mg/Ml Vial IV 03/04/24 09:05 10 mg Q4H PRN Administration blood pressure systlic > 185 Insulin Glargine 10 unit 02/05/24 09:00 02/06/24 08:01 Insulin Glargine (Lantus) 5 Unit/0.05 Ml (Per 5 Units) SC 03/06/24 08:59 10 unit QDAY XIOMY Administration Insulin Human Lispro 0 unit 02/04/24 11:30 02/06/24 11:30 Insulin Lispro (Admelog) 1 Unit/0.01 Ml Unit SC 03/05/24 11:29 Not Given AC [facility] Protocol Memantine 10 mg 02/04/24 16:15 02/06/24 08:00 Memantine Hcl 5 Mg Tablet PO 03/05/24 16:14 10 mg DAILY XIOMY Administration Metoprolol Succinate 50 mg 02/03/24 18:30 02/06/24 08:01 Metoprolol Succinate Xl 25 Mg Tabcr PO 03/04/24 18:29 50 mg QDAY XIOMY Administration Nicardipine HCl 20 mg 02/03/24 09:15 02/06/24 08:00 Nicardipine 20 Mg Capsule PO 03/04/24 09:14 20 mg BID XIOMY Administration Pantoprazole Sodium 40 mg 02/03/24 09:00 02/06/24 08:01 Pantoprazole 40 Mg Tablet PO 03/04/24 08:59 40 mg QDAY XIOMY Administration Quetiapine Fumarate 12.5 mg 02/03/24 21:00 02/05/24 20:28 Quetiapine Fumarate 25 Mg Tablet PO 03/04/24 20:59 12.5 mg HS XIOMY Administration Sennosides 1 tab 02/02/24 23:10 Senna/Docusate Sod 1 Tab Tablet PO 03/03/24 23:09 QDAY PRN CONSTIPATION Protocol Tamsulosin HCl 0.4 mg 02/03/24 09:00 02/06/24 08:01 Tamsulosin Hcl 0.4 Mg Capsule PO 03/04/24 08:59 0.4 mg QDAY XIOMY Administration Plan 78-year-old male with a past medical history of diabetes mellitus type 2 insulin dependent, hyperlipidemia, ?CHF on metoprolol, 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 Bedoya), dementia on Donepezil, and DVT on Plavix presented in the ED after episode of confusion. In the ED, he had blood pressure >200/90, BUN 37, and creatinine 3.9, calcium elevated above 11, glucose greater than 499. He was admitted for management of acute encephalopathy and NIC on CKD. #Acute encephalopathy, toxic vs metabolic #Right frontal encephalomalacia #Chronic subdural hydromas #Hypercalcemia #Hyperglycemia-resolved Ddx: Hypercalcemia versus hypertension-induced encephalopathy Patient presented for not making sense at home per family account. 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 He was found to have hyperglycemia and hypercalcemia which likely contributed to patient's confused state. Considering patient's hypertensive emergency this likely worsened his mentation. Possible NIC on CKD, hypertensive emergency, and electrolyte abnormalities resulting in patient's hostile behavior and altered mentation. Head CT (02/03/2024): Small bifrontal chronic subdural hydromas, right frontal encephalomalacia, Right basal ganglia old infart, no acute hemorrhage mass effect or midline shift. TSH normal range. Patient's mental status appears at his new baseline considering his diagnosis of dementia. He does not answer questions of orientation to person but acknowledges that he is in the hospital. Patient is unwilling to answer questions at times. MRI brain not completed as patient wanted DNR and hospice for patient with no further invasive managment. PTH is 23.2 and vitamin D 25-hydroxy: 62.5. Plan: -Aspiration/seizure precautions -Continue with fluids for hypercalcemia #Hypertensive Emergency #HTN Patient has history of hypertension. He may not be compliant on medication, Home medication is Amlodipine and Losartan. Plan -Continue nicardipine 20 mg twice daily -Holding Losartan in setting of NIC on CKD. #Social Service referral Family requests assistance with patient. Spoke with family at bedside who states that they are not able to fully take care of the patient at home. Plan: -Social Service referral for SNF placement -Pending placement -Cancel one-to-one sitter as patient needs 24 hours without a sitter to be excepted/transition to SNF; patient has been cooperative and has not showed any behavioral problems- therefore no longer needs sitter. #New onset ESRD #NIC on CKD #Hypercalcemia NIC on CKD likely secondary to declining dialysis despite requiring fluid removal with dialysis and decreased oral intake. Mild Hypercalcemia is likely secondary to CKD. History of CKD, followed by Dr. Bedoya. GFR 18 (10/2023). BUN 37 increasing BUN 44 , Cr 3.9 improved to 3.7, CrCl 12.6, GFR 9 on presentation, now 14 GFR. Corrected Calcium today-10.4. Plan: -Continue to monitor calcium levels -Phophorus AM -given patients refusal for dialysis, continue anti-hypertensive medication -Avoid nephrotoxins, given possible ESRD -Nephrology consulted, Dr. Bedoya, spoke with son who would like DNR with comfort care and rehab placement as patient cannot take in care of at home. No need for emergency dialysis. #Diabetes Mellitus Type 2, insulin dependent Chronic, uncontrolled History of DM on insulin, on Lantus at home. On admission glucose of 499, currently at 128. A1c-10.4 Less likely DKA with beta-hydroxylase 1.1. Plan: -Insulin glargine 8 units -Sliding Scale -Bedside glucose check -Hypoglycemic protocol #HLD Patient has history of hyperlipidemia on atorvastatin. Plan: -Atorvastatin 40 mg PO HS Health Maintenance: Disp: Admitted for management of acute encephalopathy, pending SNF. FEN: Cardiac and glucerna DVT: SC heparin Code: DNR Discussed case with my attending Dr. Crow and senior Moody, PGY-3. Thank you, Azul Torre, PGY-2
[2024-02-06] MEDS: hydrALAZINE HCL 10 MG TABLET PO (19:28)
[2024-02-06] MEDS: ATORVASTATIN CALCIUM 20 MG TABLET 40 MG PO (20:42)
[2024-02-06] MEDS: SENNA/DOCUSATE SOD 1 TAB TABLET PO (20:46)
[2024-02-06] MEDS: QUEtiapine FUMARATE 25 MG TABLET 12.5 MG PO (20:47)
[2024-02-07] VITALS (11 sets, daily range): BP systolic 117–188; BP diastolic 52–89; PULSE 54–87; RESP 17–20; TEMP 36.6–36.8; O2SAT 95–99
[2024-02-07] MEDS: hydrALAZINE INJ 20 MG/ML VIAL 10 MG IV (03:53)
[2024-02-07] MEDS: INSULIN LISPRO (AdmeLOG) 1 UNIT/0.01 ML UNIT SC ×4 (08:12→20:34)
[2024-02-07] MEDS: MEMANTINE HCL 5 MG TABLET 10 MG PO (08:14)
[2024-02-07] MEDS: INSULIN GLARGINE (Lantus) 5 UNIT/0.05 ML (PER 5 UNITS) 10 UNIT SC (08:14)
[2024-02-07] MEDS: DONEPEZIL HCL 5 MG TABLET 10 MG PO (08:14)
[2024-02-07] MEDS: TAMSULOSIN HCL 0.4 MG CAPSULE PO (08:15)
[2024-02-07] MEDS: PANTOPRAZOLE 40 MG TABLET PO (08:15)
[2024-02-07] MEDS: niCARdipine 20 MG CAPSULE PO ×2 (08:15→20:23)
[2024-02-07] MEDS: METOPROLOL SUCCINATE XL 25 MG TABCR 50 MG PO (08:15)
[2024-02-07] MEDS: CLOPIDOGREL BISULFATE 75 MG TABLET PO (08:16)
--- NOTE | 2024-02-07 08:38 | PC.SS ---
Addendum entered by Yesenia Mcclure [facility] 02/07/24 16:13: Updated Arianna with [facility]. Addendum entered by Yesenia Mcclure [facility] 02/07/24 15:27: Met at bed side with patient and his son Galen Grullon to discuss the d/c plan. Galen informs he would not be able to take the patient home as he works during the day and no one is available to care for the patient at home. Galen would like to proceed with [facility], he is aware no hospice bed available with them, however comfort measures to follow. Contacted Salma at [facility], [place], informs they will not have a male bed available until this Monday. Patient's son aware. Updated Dr. Uriostegui and bed side nurse. Plan for discharge to SNF on Monday. Addendum entered by Yesenia Mcclure [facility] 02/07/24 12:56: Updated bed side nurse Tonya on current status. Addendum entered by Yesenia Mcclure [facility] 02/07/24 12:52: Updated patient's son, Galen Grullon. He is aware of currently only accepting facilities: Telephone with comfort care and [facility] with Hospice bed. He informs he is not sure how he wants to proceed and will call back with an update. Addendum entered by Yesenia Mcclure [facility] 02/07/24 12:48: Spoke with Cecelia at [facility], inform no hospice bed available at this time. Addendum entered by Yesenia Mcclure [facility] 02/07/24 11:48: Attempted contact with [facility], left a voicemail for Carolin and provided a message to staff requesting call back. Addendum entered by Yesenia Mcclure [facility] 02/07/24 11:11: Received call from Mary at [facility]. They are declining to accept the patient at this time. Updated Dr. Uriostegui. Original Note: Contacted [facility], spoke with Mary and notified her patient no longer has sitter as of 1609 yesterday. Asked if they are willing to accept the patient after 1609 today. Notified her that patient has not had any behaviors the last couple of days and explained to her why sitter was initially placed. Informed her that patient is also to be going on hospice services with [facility]. Mary informed she would discuss with her DON and call back with update.
[2024-02-07 08:41] LABS: Basophils # (Auto) 0.1 Thou/mm3 (0.0-0.2); Basophils % (Auto) 1 % (0-2.5); Eosinophils # (Auto) 0.2 Thou/mm3 (0.0-0.5); Eosinophils % (Auto) 3 % (0-10); Hematocrit 37.6 % (41.0-53.0); Hemoglobin 12.9 g/dL (13.5-16.0); Immature Granulocytes % (Auto) 0 % (0-0); Immature Granulocytes Auto 0.03 Thou/mm3 (0.00-0.00); Lymphocytes # (Auto) 0.9 Thou/mm3 (1.0-4.8); Lymphocytes % (Auto) 13 % (10-50); Mean Corpuscular HGB Conc 34.3 g/dl (31.0-37.0); Mean Corpuscular Hemoglobin 28.3 pg (25.0-35.0); Mean Corpuscular Volume 83 fL (80-100); Monocytes # (Auto) 0.5 Thou/mm3 (0.0-0.8); Monocytes % (Auto) 7 % (0-12); Neutrophils # (Auto) 5.2 Thou/mm3 (1.8-7.7); Neutrophils % (Auto) 76 % (37-80); Nucleated Red Blood Cell % 0 /100 WBC (0); Platelet Count 205 Thou/mm3 (140-440); RDW Standard Deviation 41.2 fL (35.1-43.9); Red Blood Count 4.56 Miln/mm3 (4.50-5.90); White Blood Count 6.9 Thou/mm3 (3.8-10.6)
[2024-02-07 09:14] LABS: Alanine Aminotransferase 7 U/L (10-49); Albumin/Globulin Ratio 1.6 (1.2-2.2); Alkaline Phosphatase 75 U/L (46-116); Anion Gap 7 (7-16); Aspartate Amino Transferase 16 U/L (0-34); BUN/Creatinine Ratio 8 Ratio (12-20); Bilirubin,Total 0.6 mg/dL (0.3-1.2); Blood Urea Nitrogen 32 mg/dL (9-23); Calcium 10.3 mg/dL (8.3-10.6); Calcium (Corrected) 10.3 mg/dL (8.5-10.1); Carbon Dioxide 26.2 mMol/L (20.0-31.0); Chloride 103 mMol/L (98-107); Creatinine (Component) 3.8 mg/dL (0.6-1.3); Estimated Creatinine Clearance 11.5 mL/min (>60); Globulin 2.5 gm/dL (2.3-3.5); Glucose 240 mg/dL (74-106); Osmolality,Calculated 286 (275-295); Potassium 3.6 mMol/L (3.4-5.1); Sodium 136 mMol/L (136-145); Total Protein 6.5 gm/dL (5.7-8.2); eGFR 15 See Note
[2024-02-07] MEDS: Milk Of Magnesia Susp 30 ML UDC PO (11:26)
[2024-02-07] MEDS: HEPARIN SOD INJ 5000 UNIT/ML VIAL SC (13:17)
--- NOTE | 2024-02-07 14:20 | XR_ITS ---
Examination: Knee, left , 3 views Technique: Knee AP, lateral, oblique 3 views Date and time of exam: February 07, 2024 1441 hours INDICATIONS: Tenderness medial knee today FINDINGS: Severe osteopenia Mild narrowing medial joint space Small knee effusion No fracture No cortical bone destruction Mild osteoarthritis lateral patellofemoral joints IMPRESSION: Soft tissue swelling medial joint space, consider ultrasound soft tissue knee follow-up
--- NOTE | 2024-02-07 17:45 | ESPR_ITS ---
<Statement entered by Branden Crow MD - 02/11/24 16:33> I reviewed above note and agree with findings and plans. I have also personally examined the patient with medicine team and went over assessment and plan with medical team including internet designer and resident physician. <Statement entered by Burt Uriostegui DO - 02/07/24 19:48> Senior attestation: Patient was examined and case was reviewed with team including attending physician. Note reviewed, I agree with most of its contents and agree with the patient's care. Pending SNF hospice placement, case management team working on finding facility. Patient found to be tender on medial left knee, no signs of erythema or swelling noted. Patient's son believes patient may have fallen or injured self, although no documented record of any falls has been noted by medical staff. Will order left knee xray however no suspicion of knee fracture given physical exam findings. Burt Uriostegui DO PGY-3 Documentation for date of: 02/07/24 Subjective Subjective Interval history: No acute overnight events. Patient seen and examined at bedside. He continues to speak/conversational but without making sense. Patient is alert and oriented to person and place. Continue with nicardipine for hypertension. Pending placement to SNF. Son prefers [facility] or [facility]. Patient's son complained of patient having fallen recently and possibly having knee impairment. Extensive conversation was held with family at bedside. Questions were answered appropriately. X-ray ordered to rule out possible fracture of patient's knee. Exam Vital Signs Temp Pulse Resp BP Pulse Ox O2 Del Method O2 Flow Rate 98.3 F 60 17 127/61 97 Room Air 3 02/07/24 16:00 02/07/24 16:00 02/07/24 16:00 02/07/24 16:00 02/07/24 16:00 02/07/24 16:00 02/05/24 20:00 Narrative Exam GENERAL: well developed in no acute distress. NEURO: OPERATIONS SPECIALISTS grossly intact, moves extremities x4 HEENT: Dry mucosa. Eyes open, symmetrical, & clear. CARDIO: No chest pain on palpation. Heart RRR, no obvious murmurs PULM: No noted coughing/dyspnea. Lungs CTA B/L GI: Abdomen soft, nondistended, no pain on palpation. BSx4 URO/BINDING CUTTER:: No further abnormalities noted. SKIN/MSK/EXT: No wounds/rashes/edema/amputations, no pain on palpation. Pedal pulses present B/L Objective Labs 02/07/24 08:30 02/07/24 08:30 Labs: Laboratory Results - last 24 hr 02/07/24 08:30 WBC 6.9 RBC 4.56 Hgb 12.9 L Hct 37.6 L MCV 83 MCH 28.3 MCHC 34.3 RDW Std Deviation 41.2 Plt Count 205 D Neut % (Auto) 76 Lymph % (Auto) 13 [place] % (Auto) 7 Eos % (Auto) 3 Baso % (Auto) 1 Neut # (Auto) 5.2 Lymph # (Auto) 0.9 L [place] # (Auto) 0.5 Eos # (Auto) 0.2 Baso # (Auto) 0.1 Immature Gran # (Auto) 0.03 H Absolute Nucleated RBC 0.00 Immature Gran % 0 Nucleated RBC % 0 Sodium 136 Potassium 3.6 Chloride 103 Carbon Dioxide 26.2 Anion Gap 7 BUN 32 H Creatinine 3.8 H Estim Creat Clear Calc 11.5 L eGFR 15 L BUN/Creatinine Ratio 8 L Glucose 240 H Calculated Osmolality 286 Calcium 10.3 Corrected Calcium 10.3 H Total Bilirubin 0.6 AST 16 ALT 7 L Alkaline Phosphatase 75 D Total Protein 6.5 Albumin 4.0 Globulin 2.5 Albumin/Globulin Ratio 1.6 ABG Interpretation ABG results: 02/01/24 22:15 VBG pH 7.43 VBG pCO2 38 VBG pO2 47 VBG Base Excess 1 Quality Measures Quality Measures VTE prophylaxis Advance care planning discussed with:: patient Assessment & Plan Assessment Current Active Medications: Generic Name Dose Route Start Last Admin Trade Name Janki PRN Reason Stop Dose Admin Acetaminophen 650 mg 02/02/24 22:22 02/04/24 08:32 Acetaminophen 325 Mg Tablet PO 03/03/24 22:21 650 mg Q6H PRN Administration Mild Pain 1-3 or Fever >100.4 Atorvastatin Calcium 40 mg 02/02/24 21:00 02/06/24 20:42 Atorvastatin Calcium 20 Mg Tablet PO 03/03/24 20:59 40 mg HS XIOMY Administration Clopidogrel Bisulfate 75 mg 02/03/24 09:00 02/07/24 08:16 Clopidogrel Bisulfate 75 Mg Tablet PO 03/04/24 08:59 75 mg QDAY XIOMY Administration Dextrose 25 ml 02/02/24 22:37 Dextrose 50%-Water Inj 50 Ml Syringe IV 03/03/24 22:36 Q15MIN PRN BG 50-70 responsive npo pt Dextrose 50 ml 02/02/24 22:37 Dextrose 50%-Water Inj 50 Ml Syringe IV 03/03/24 22:36 Q15MIN PRN BG <50 OR BG <70 & pt unresponsive Donepezil HCl 10 mg 02/03/24 09:00 02/07/24 08:14 Donepezil Hcl 5 Mg Tablet PO 03/04/24 08:59 10 mg QDAY XIOMY Administration Glucagon 1 mg 02/02/24 22:37 Glucagon Inj 1 Mg Vial IM Q15MIN PRN BG <70, and no IV access Heparin Sodium (Porcine) 5,000 unit 02/04/24 13:30 02/07/24 13:17 Heparin Sod Inj 5000 Unit/Ml Vial SC 02/18/24 13:29 5,000 unit Q12H XIOMY Administration Hydralazine HCl 10 mg 02/03/24 09:06 02/07/24 03:53 Hydralazine Inj 20 Mg/Ml Vial IV 03/04/24 09:05 10 mg Q4H PRN Administration blood pressure systlic > 185 Insulin Glargine 10 unit 02/05/24 09:00 02/07/24 08:14 Insulin Glargine (Lantus) 5 Unit/0.05 Ml (Per 5 Units) SC 03/06/24 08:59 10 unit QDAY XIOMY Administration Insulin Human Lispro 0 unit 02/04/24 11:30 02/07/24 17:03 Insulin Lispro (Admelog) 1 Unit/0.01 Ml Unit SC 03/05/24 11:29 1 unit AC XIOMY Administration Protocol Memantine 10 mg 02/04/24 16:15 02/07/24 08:14 Memantine Hcl 5 Mg Tablet PO 03/05/24 16:14 10 mg DAILY XIOMY Administration Metoprolol Succinate 50 mg 02/03/24 18:30 02/07/24 08:15 Metoprolol Succinate Xl 25 Mg Tabcr PO 03/04/24 18:29 50 mg QDAY XIOMY Administration Nicardipine HCl 20 mg 02/03/24 09:15 02/07/24 08:15 Nicardipine 20 Mg Capsule PO 03/04/24 09:14 20 mg BID XIOMY Administration Pantoprazole Sodium 40 mg 02/03/24 09:00 02/07/24 08:15 Pantoprazole 40 Mg Tablet PO 03/04/24 08:59 40 mg QDAY XIOMY Administration Quetiapine Fumarate 12.5 mg 02/03/24 21:00 02/06/24 20:47 Quetiapine Fumarate 25 Mg Tablet PO 03/04/24 20:59 12.5 mg HS XIOMY Administration Sennosides 1 tab 02/02/24 23:10 02/06/24 20:46 Senna/Docusate Sod 1 Tab Tablet PO 03/03/24 23:09 1 tab QDAY PRN Administration CONSTIPATION Protocol Tamsulosin HCl 0.4 mg 02/03/24 09:00 02/07/24 08:15 Tamsulosin Hcl 0.4 Mg Capsule PO 03/04/24 08:59 0.4 mg QDAY XIOMY Administration Plan 78-year-old male with a past medical history of diabetes mellitus type 2 insulin dependent, hyperlipidemia, ?CHF on metoprolol, 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 Bedoya), dementia on Donepezil, and DVT on Plavix presented in the ED after episode of confusion. In the ED, he had blood pressure >200/90, BUN 37, and creatinine 3.9, calcium elevated above 11, glucose greater than 499. He was admitted for management of acute encephalopathy, hypertensive emergency, and NIC on CKD. #Acute encephalopathy, toxic vs metabolic #Right frontal encephalomalacia #Chronic subdural hydromas #Hypercalcemia, improving #Dementia history Ddx: Hypercalcemia versus hypertension-induced encephalopathy Patient presented for not making sense at home per family account. 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 He was found to have hyperglycemia and hypercalcemia which likely contributed to patient's confused state--hyperglycemia now resolved. Considering patient's hypertensive emergency with underlying dementia this likely worsened his mentation. Possible NIC on CKD, hypertensive emergency, and electrolyte abnormalities led to patient's altered mentation. Head CT (02/03/2024): Small bifrontal chronic subdural hydromas, right frontal encephalomalacia, Right basal ganglia old infart, no acute hemorrhage mass effect or midline shift. Patient's mental status appears at his new baseline. Alert and oriented to person and place. MRI brain not completed as patient wanted DNR and hospice for patient with no further invasive managment. PTH is 23.2 and vitamin D 25-hydroxy: 62.5.TSH normal range. Plan: -Aspiration/seizure precautions -Frequent reorientation as needed -Memantine and donepezil #Social Service referral Family requests assistance with patient. Spoke with family at bedside who states that they are not able to fully take care of the patient at home. Canceled one-to-one sitter on 02/06/24 as patient needs 24 hours without a sitter to be excepted/transition to SNF. Patient has been cooperative and has not showed any behavioral problems- therefore no longer needs sitter. Plan: -Social Service referral for SNF placement -Pending placement #HTN Patient has history of hypertension and is noncompliant with medications. Home medication is Amlodipine and Losartan. Plan -Continue nicardipine 20 mg twice daily -Holding Losartan in setting of NIC on CKD. #New onset ESRD #NIC on CKD #Hypercalcemia, improving NIC on CKD likely secondary to declining dialysis despite requiring fluid removal with dialysis and decreased oral intake. Mild Hypercalcemia is likely secondary to CKD. History of CKD, followed by Dr. Bedoya. GFR 18 (10/2023). BUN 37 increasing BUN 44 , Cr 3.9 improved to 3.7, CrCl 12.6, GFR 9 on presentation, now 14 GFR. Corrected Calcium -10.4 improved to 10.3. Plan: -Continue to monitor calcium levels -given patients refusal for dialysis, continue anti-hypertensive medication -Phophorus AM -Avoid nephrotoxins, given possible ESRD -Nephrology consulted, Dr. Bedoya, spoke with son who would like DNR with comfort care and rehab placement as patient cannot take in care of at home. No need for emergency dialysis. #Diabetes Mellitus Type 2, insulin dependent (A1c-10.4) Chronic, uncontrolled History of DM on insulin, on Lantus at home. On admission glucose of 499, currently at 128. Less likely DKA with beta-hydroxylase 1.1. Plan: -Insulin glargine 8 units -Sliding Scale -Bedside glucose check -Hypoglycemic protocol #HLD Patient has history of hyperlipidemia on atorvastatin. Plan: -Atorvastatin 40 mg PO HS #Hyperglycemia-resolved #Electrolyte abnormalities, resolved #Hypertensive Emergency, resolved Health Maintenance: Disp: Admitted for management of acute encephalopathy, pending SNF placement. FEN: Cardiac and glucerna DVT: SC heparin Code: DNR Discussed case with my attending Dr. Crow and senior Moody, PGY-3. Thank you, Azul Torre, PGY-2
[2024-02-07] MEDS: ATORVASTATIN CALCIUM 20 MG TABLET 40 MG PO (20:23)
[2024-02-07] MEDS: QUEtiapine FUMARATE 25 MG TABLET 12.5 MG PO (20:23)
--- NOTE | 2024-02-07 20:26 | PC.NURSE ---
Notify of pt's Blood Sugar 293.
[2024-02-08] VITALS (10 sets, daily range): BP systolic 107–170; BP diastolic 60–88; PULSE 50–74; RESP 12–20; TEMP 36.4–36.7; O2SAT 94–98
[2024-02-08] MEDS: INSULIN LISPRO (AdmeLOG) 1 UNIT/0.01 ML UNIT SC ×4 (07:42→20:35)
[2024-02-08] MEDS: INSULIN GLARGINE (Lantus) 5 UNIT/0.05 ML (PER 5 UNITS) 10 UNIT SC (08:54)
[2024-02-08] MEDS: niCARdipine 20 MG CAPSULE PO ×2 (08:56→20:33)
[2024-02-08] MEDS: CLOPIDOGREL BISULFATE 75 MG TABLET PO (08:56)
[2024-02-08] MEDS: METOPROLOL SUCCINATE XL 25 MG TABCR 50 MG PO (08:57)
[2024-02-08] MEDS: MEMANTINE HCL 5 MG TABLET 10 MG PO (08:58)
[2024-02-08] MEDS: PANTOPRAZOLE 40 MG TABLET PO (08:58)
[2024-02-08] MEDS: DONEPEZIL HCL 5 MG TABLET 10 MG PO (08:58)
[2024-02-08] MEDS: TAMSULOSIN HCL 0.4 MG CAPSULE PO (08:58)
--- NOTE | 2024-02-08 11:11 | ESPR_ITS ---
<Statement entered by Branden Crow MD - 02/11/24 16:34> I reviewed above note and agree with findings and plans. I have also personally examined the patient with medicine team and went over assessment and plan with medical team including communications intern and resident physician. <Statement entered by Burt Uriostegui DO - 02/08/24 13:19> Senior attestation: Patient was examined and case was reviewed with team including attending physician. Note reviewed, I agree with most of its contents and agree with the patient's care. Left knee xray film reviewed with patient and family, patient's knee pain has resolved. Pending SNF hospice placement, anticipated 02/08. Burt Uriostegui DO PGY-3 Documentation for date of: 02/08/24 Subjective Subjective Interval history: Patient seen and examined at bedside. No acute overnight events. Continue with nicardipine for hypertension. Anticipate discharge to [facility] with hospice care, pending authorization. Exam Vital Signs Temp Pulse Resp BP Pulse Ox O2 Del Method O2 Flow Rate 97.6 F 59 L 18 137/74 H 94 L Room Air 3 02/08/24 08:00 02/08/24 09:35 02/08/24 08:00 02/08/24 08:57 02/08/24 08:00 02/08/24 08:00 02/05/24 20:00 Narrative Exam GENERAL: well developed in no acute distress. NEURO: ED CASE MANAGER grossly intact, moves extremities x4 HEENT: Dry mucosa. Eyes open, symmetrical, & clear. CARDIO: No chest pain on palpation. Heart RRR, no obvious murmurs PULM: No noted coughing/dyspnea. Lungs CTA B/L GI: Abdomen soft, nondistended, no pain on palpation. BSx4 URO/MS SQL SERVER DEVELOPER:: No further abnormalities noted. SKIN/MSK/EXT: No wounds/rashes/edema/amputations, no pain on palpation. Pedal pulses present B/L Objective Labs 02/07/24 08:30 02/07/24 08:30 ABG Interpretation ABG results: 02/01/24 22:15 VBG pH 7.43 VBG pCO2 38 VBG pO2 47 VBG Base Excess 1 Quality Measures Quality Measures VTE prophylaxis Advance care planning discussed with:: patient Assessment & Plan Assessment Current Active Medications: Generic Name Dose Route Start Last Admin Trade Name Freq PRN Reason Stop Dose Admin Acetaminophen 650 mg 02/02/24 22:22 02/04/24 08:32 Acetaminophen 325 Mg Tablet PO 03/03/24 22:21 650 mg Q6H PRN Administration Mild Pain 1-3 or Fever >100.4 Atorvastatin Calcium 40 mg 02/02/24 21:00 02/07/24 20:23 Atorvastatin Calcium 20 Mg Tablet PO 03/03/24 20:59 40 mg HS XIOMY Administration Clopidogrel Bisulfate 75 mg 02/03/24 09:00 02/08/24 08:56 Clopidogrel Bisulfate 75 Mg Tablet PO 03/04/24 08:59 75 mg QDAY XIOMY Administration Dextrose 25 ml 02/02/24 22:37 Dextrose 50%-Water Inj 50 Ml Syringe IV 03/03/24 22:36 Q15MIN PRN BG 50-70 responsive npo pt Dextrose 50 ml 02/02/24 22:37 Dextrose 50%-Water Inj 50 Ml Syringe IV 03/03/24 22:36 Q15MIN PRN BG <50 OR BG <70 & pt unresponsive Donepezil HCl 10 mg 02/03/24 09:00 02/08/24 08:58 Donepezil Hcl 5 Mg Tablet PO 03/04/24 08:59 10 mg QDAY XIOMY Administration Glucagon 1 mg 02/02/24 22:37 Glucagon Inj 1 Mg Vial IM Q15MIN PRN BG <70, and no IV access Heparin Sodium (Porcine) 5,000 unit 02/04/24 13:30 02/08/24 01:00 Heparin Sod Inj 5000 Unit/Ml Vial SC 02/18/24 13:29 Not Given Q12H XIOMY Hydralazine HCl 10 mg 02/03/24 09:06 02/07/24 03:53 Hydralazine Inj 20 Mg/Ml Vial IV 03/04/24 09:05 10 mg Q4H PRN Administration blood pressure systlic > 185 Insulin Glargine 10 unit 02/05/24 09:00 02/08/24 08:54 Insulin Glargine (Lantus) 5 Unit/0.05 Ml (Per 5 Units) SC 03/06/24 08:59 10 unit QDAY XIOMY Administration Insulin Human Lispro 0 unit 02/07/24 21:00 02/08/24 07:42 Insulin Lispro (Admelog) 1 Unit/0.01 Ml Unit SC 03/08/24 20:59 2 unit ACHS XIOMY Administration Protocol Memantine 10 mg 02/04/24 16:15 02/08/24 08:58 Memantine Hcl 5 Mg Tablet PO 03/05/24 16:14 10 mg DAILY XIOMY Administration Metoprolol Succinate 50 mg 02/03/24 18:30 02/08/24 08:57 Metoprolol Succinate Xl 25 Mg Tabcr PO 03/04/24 18:29 50 mg QDAY XIOMY Administration Nicardipine HCl 20 mg 02/03/24 09:15 02/08/24 08:56 Nicardipine 20 Mg Capsule PO 03/04/24 09:14 20 mg BID XIOMY Administration Pantoprazole Sodium 40 mg 02/03/24 09:00 02/08/24 08:58 Pantoprazole 40 Mg Tablet PO 03/04/24 08:59 40 mg QDAY XIOMY Administration Quetiapine Fumarate 12.5 mg 02/03/24 21:00 02/07/24 20:23 Quetiapine Fumarate 25 Mg Tablet PO 03/04/24 20:59 12.5 mg HS XIOMY Administration Sennosides 1 tab 02/02/24 23:10 02/06/24 20:46 Senna/Docusate Sod 1 Tab Tablet PO 03/03/24 23:09 1 tab QDAY PRN Administration CONSTIPATION Protocol Tamsulosin HCl 0.4 mg 02/03/24 09:00 02/08/24 08:58 Tamsulosin Hcl 0.4 Mg Capsule PO 03/04/24 08:59 0.4 mg QDAY XIOMY Administration Plan 78-year-old male with a past medical history of diabetes mellitus type 2 insulin dependent, hyperlipidemia, ?CHF on metoprolol, 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 Bedoya), dementia on Donepezil, and DVT on Plavix presented in the ED after episode of confusion. In the ED, he had blood pressure >200/90, BUN 37, and creatinine 3.9, calcium elevated above 11, glucose greater than 499. He was admitted for management of acute encephalopathy, hypertensive emergency, and NIC on CKD. #Acute encephalopathy, toxic vs metabolic #Right frontal encephalomalacia #Chronic subdural hydromas #Hypercalcemia, improving #Dementia history Ddx: Hypercalcemia versus hypertension-induced encephalopathy Patient presented for not making sense at home per family account. 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 He was found to have hyperglycemia and hypercalcemia which likely contributed to patient's confused state--hyperglycemia now resolved. Considering patient's hypertensive emergency with underlying dementia this likely worsened his mentation. Possible NIC on CKD, hypertensive emergency, and electrolyte abnormalities led to patient's altered mentation. Head CT (02/03/2024): Small bifrontal chronic subdural hydromas, right frontal encephalomalacia, Right basal ganglia old infart, no acute hemorrhage mass effect or midline shift. Patient's mental status appears at his new baseline. Alert and oriented to person and place. MRI brain not completed as patient wanted DNR and hospice for patient with no further invasive managment. PTH is 23.2 and vitamin D 25-hydroxy: 62.5.TSH normal range. Plan: -Aspiration/seizure precautions -Frequent reorientation as needed -Memantine and Donepezil #Social Service referral Family requests assistance with patient. Spoke with family at bedside who states that they are not able to fully take care of the patient at home. Plan: -Social Service referral for SNF placement -Pending placement #HTN Patient has history of hypertension and is noncompliant with medications. Home medication is Amlodipine and Losartan. Plan -Continue nicardipine 20 mg twice daily -Holding Losartan in setting of NIC on CKD. #New onset ESRD #NIC on CKD #Hypercalcemia, improving NIC on CKD likely secondary to declining dialysis despite requiring fluid removal with dialysis and decreased oral intake. Mild Hypercalcemia is likely secondary to CKD. History of CKD, followed by Dr. Bedoya. GFR 18 (10/2023). BUN 37 increasing BUN 44 , Cr 3.9 improved to 3.7, CrCl 12.6, GFR 9 on presentation, now 14 GFR. Corrected Calcium -10.4 improved to 10.3. Plan: -Continue to monitor calcium levels -given patients refusal for dialysis, continue anti-hypertensive medication -Phophorus AM -Avoid nephrotoxins, given possible ESRD -Nephrology consulted, Dr. Bedoya, spoke with son who would like DNR with comfort care and rehab placement as patient cannot take in care of at home. No need for emergency dialysis. #Diabetes Mellitus Type 2, insulin dependent (A1c-10.4) Chronic, uncontrolled History of DM on insulin, on Lantus at home. On admission glucose of 499, currently at 128. Less likely DKA with beta-hydroxylase 1.1. Plan: -Insulin glargine 8 units -Sliding Scale -Bedside glucose check -Hypoglycemic protocol #HLD Patient has history of hyperlipidemia on atorvastatin. Plan: -Atorvastatin 40 mg PO HS #Hyperglycemia-resolved #Electrolyte abnormalities, resolved #Hypertensive Emergency, resolved Health Maintenance: Disp: Admitted for management of acute encephalopathy, pending SNF placement. FEN: Cardiac and glucerna DVT: SC heparin Code: DNR Case discussed with Attending Dr. Crow and Dr. Uroistegui PGY3. Lamont Loredo PGY1
[2024-02-08] MEDS: HEPARIN SOD INJ 5000 UNIT/ML VIAL SC (13:47)
[2024-02-08] MEDS: ATORVASTATIN CALCIUM 20 MG TABLET 40 MG PO (20:32)
[2024-02-08] MEDS: QUEtiapine FUMARATE 25 MG TABLET 12.5 MG PO (20:32)
[2024-02-09] VITALS (7 sets, daily range): BP systolic 113–149; BP diastolic 57–78; PULSE 55–78; RESP 18–20; TEMP 36.4–36.9; O2SAT 97–99
[2024-02-09] MEDS: hydrOXYzine HCL 25 MG TABLET PO (00:21)
[2024-02-09] MEDS: HEPARIN SOD INJ 5000 UNIT/ML VIAL SC ×2 (00:37→13:44)
[2024-02-09] MEDS: INSULIN LISPRO (AdmeLOG) 1 UNIT/0.01 ML UNIT SC ×2 (07:31→11:42)
[2024-02-09] MEDS: CLOPIDOGREL BISULFATE 75 MG TABLET PO (08:13)
[2024-02-09] MEDS: INSULIN GLARGINE (Lantus) 5 UNIT/0.05 ML (PER 5 UNITS) 15 UNIT SC (08:14)
[2024-02-09] MEDS: DONEPEZIL HCL 5 MG TABLET 10 MG PO (08:14)
[2024-02-09] MEDS: MEMANTINE HCL 5 MG TABLET 10 MG PO (08:15)
[2024-02-09] MEDS: METOPROLOL SUCCINATE XL 25 MG TABCR 50 MG PO (08:15)
[2024-02-09] MEDS: PANTOPRAZOLE 40 MG TABLET PO (08:15)
[2024-02-09] MEDS: niCARdipine 20 MG CAPSULE PO (08:15)
[2024-02-09] MEDS: TAMSULOSIN HCL 0.4 MG CAPSULE PO (08:16)
[2024-02-09 08:18] LABS: Basophils # (Auto) 0.1 Thou/mm3 (0.0-0.2); Basophils % (Auto) 1 % (0-2.5); Eosinophils # (Auto) 0.4 Thou/mm3 (0.0-0.5); Eosinophils % (Auto) 5 % (0-10); Hematocrit 35.1 % (41.0-53.0); Hemoglobin 11.4 g/dL (13.5-16.0); Immature Granulocytes % (Auto) 1 % (0-0); Immature Granulocytes Auto 0.04 Thou/mm3 (0.00-0.00); Lymphocytes # (Auto) 1.5 Thou/mm3 (1.0-4.8); Lymphocytes % (Auto) 20 % (10-50); Mean Corpuscular HGB Conc 32.5 g/dl (31.0-37.0); Mean Corpuscular Hemoglobin 28.1 pg (25.0-35.0); Mean Corpuscular Volume 87 fL (80-100); Monocytes # (Auto) 0.7 Thou/mm3 (0.0-0.8); Monocytes % (Auto) 9 % (0-12); Neutrophils # (Auto) 5.1 Thou/mm3 (1.8-7.7); Neutrophils % (Auto) 65 % (37-80); Nucleated Red Blood Cell % 0 /100 WBC (0); Platelet Count 189 Thou/mm3 (140-440); RDW Standard Deviation 43.6 fL (35.1-43.9); Red Blood Count 4.05 Miln/mm3 (4.50-5.90); White Blood Count 7.8 Thou/mm3 (3.8-10.6)
[2024-02-09 08:41] LABS: Alanine Aminotransferase 24 U/L (10-49); Albumin, Serum 3.5 gm/dL (3.4-4.8); Albumin/Globulin Ratio 1.7 (1.2-2.2); Alkaline Phosphatase 84 U/L (46-116); Anion Gap 6 (7-16); Aspartate Amino Transferase 30 U/L (0-34); BUN/Creatinine Ratio 11 Ratio (12-20); Bilirubin,Total 0.4 mg/dL (0.3-1.2); Blood Urea Nitrogen 46 mg/dL (9-23); Calcium 9.5 mg/dL (8.3-10.6); Calcium (Corrected) 9.9 mg/dL (8.5-10.1); Carbon Dioxide 26.1 mMol/L (20.0-31.0); Chloride 105 mMol/L (98-107); Creatinine (Component) 4.3 mg/dL (0.6-1.3); Estimated Creatinine Clearance 10.1 mL/min (>60); Globulin 2.1 gm/dL (2.3-3.5); Glucose 174 mg/dL (74-106); Osmolality,Calculated 289 (275-295); Potassium 4.3 mMol/L (3.4-5.1); Sodium 137 mMol/L (136-145); Total Protein 5.6 gm/dL (5.7-8.2); eGFR 13 See Note
--- NOTE | 2024-02-09 11:01 | PC.SS ---
Addendum entered by Joceline Kramer 02/09/24 12:14: SS followed up with Sarah at [facility] who states they can accept pt. SS confirmed with son pt is not on dialysis and has not been to SNF this year. SS has setup gurney transportation with Mandy [facility] who then transferred call to [place]. SS has requested [facility] and transport time of 3pm. Ref# [id number]. has sent ambulance and patient's facesheet to [facility] using [employer]. SS spoke to Prema from [facility] who has placed on will call list until they have been contacted by [facility]. Original Note: Follow up note: SS followed up with Sarah at [facility] who explained they are making room changes to accommodate pt today. SS has informed sonGalen pt is possible d/c to [facility].
--- NOTE | 2024-02-09 11:30 | ESDS_ITS ---
<Statement entered by Branden Crow MD - 02/11/24 16:34> I reviewed above note and agree with findings and plans. I have also personally examined the patient with medicine team and went over assessment and plan with medical team including financial services internship and resident physician. <Statement entered by Burt Uriostegui DO - 02/09/24 15:03> Senior attestation: Patient was examined and case was reviewed with team including attending physician. Note reviewed, I agree with most of its contents and agree with the patient's care. Burt Uriostegui DO PGY-3 Planned Discharge Date 02/09/24 DS: Providers Provider Date of admission: 02/02/24 22:22 Primary care physician: CHRISTINA Gay Admitting Provider: Sukhdeep Shetty MD Attending Provider on Admission: Branden Crow MD Consults: 02/02/24 19:25 Referral Discharge Planning Stat Comment: hospice care 02/02/24 19:26 Referral Hospice Stat Comment: [facility] 02/02/24 19:28 Consult to Nephrology Stat Comment: CKD, Hypercalcemia Consulting Provider: Sonam Bedoya 02/02/24 22:36 Referral Speech Therapy Stat Comment: Instructions: Please do Swallow Evaluation on patient, worsening altered mental status. Hx of Dementia. 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 Bedoya), dementia on Donepezil, and DVT on P lavix presented in the ED after episode of confusion. In the ED, he had blood pressure >200/90, BUN 37, and creatinine 3.9, calcium elevated above 11, glucose greater than 499. He was admitted for management of acute encephalopathy, hypertensive emergency, and NIC on CKD. NIC on CKD, hypertensive emergency, and electrolyte abnormalities led to patient's altered mentation. He was found to have hyperglycemia and hypercalcemia which likely contributed to patient's confused state--hyperglycemia now resolved. Considering patient's hypertensive emergency with underlying dementia this likely worsened his mentation. Head CT (02/03/2024): Small bifrontal chronic subdural hydromas, right frontal encephalomalacia, Right basal ganglia old infart, no acute hemorrhage mass effect or midline shift. Patient's mental status appears at his new baseline. MRI brain not completed as patient wanted DNR and hospice for patient with no further invasive management, per family request. Frequent reorientation with Memantine and Donepezil given.patient developed new onset ESRD secondary to declining dialysis despite requiring fluid removal with dialysis and decreased oral intake. Nephrology consulted, Dr. Bedoya, spoke with son who would like DNR with comfort care and rehab placement as patient cannot take in care of at home. No need for emergency dialysis. Patient is medically stable for discharge to a facility with hospice. Family understands that patient will need follow up with PCP within one week of discharge. He will continue all medications as prescribed. If symptoms worsen, patient understands to return to the ED. Discussed case with my attending Dr. Crow and senior Uriostegui, PGY-3. Thank you, Azul Torre, PGY-2 Time Spent with Patient Time attestation: Total time spent providing and/or coordinating discharge services: Time spent: Greater than 30 minutes Exam Vital Signs Temp Pulse Resp BP Pulse Ox O2 Del Method O2 Flow Rate 97.7 F 60 19 149/68 H 97 Room Air 3 02/09/24 07:42 02/09/24 08:15 02/09/24 07:42 02/09/24 08:15 02/09/24 07:42 02/09/24 07:42 02/09/24 04:00 Narrative Exam GENERAL: well developed, well-groomed, in no acute distress. Laying in bed gurney. NEURO: ANIMAL FEEDER grossly intact, moves extremities x4 HEENT: Dry mucosa. Eyes open, symmetrical, & clear. CARDIO: RRR, S1 and S2 noted. Heart RRR, no murmurs PULM: Lungs CTA B/L. No wheezing or crackles noted. GI: Abdomen soft, nondistended, no tenderness on palpation. 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 SKIN/MSK/EXT: No wounds/rashes. Discharge Plan Plan Patient Disposition: Home w/HOSPICE Disposition Comment: Facility with hospice Patient condition on transfer: Stable Care Plan Goals: Discharged to a facility with hospice Follow up with PCP within one week of discharge Continue all medications as prescribed If symptoms worsen, please return to the ED. Prescriptions/Referrals Prescriptions/Med Rec: Continued tamsulosin 0.4 mg capsule 0.8 mg PO QHS losartan 50 mg Tablet 50 mg PO QDAY hydroxyzine HCl 25 mg tablet 25 mg PO HS Patient Comments: TAKE 1 TABLET BY MOUTH AT NIGHT Gemtesa 75 mg tablet 75 mg PO QDAY ergocalciferol (vitamin D2) 1,250 mcg (50,000 unit) capsule 1,250 mcg PO QWEEK Patient Comments: TAKE 1 CAPSULE BY MOUTH ONCE A WEEK VITAMIN metoprolol succinate 50 mg tablet extended release 24 hr 50 mg PO QPM Patient Comments: TAKE 1 TABLET BY MOUTH AT NIGHT FOR BLOOD PRESSURE famotidine 40 mg tablet 40 mg PO HS Patient Comments: TAKE 1 TABLET BY MOUTH EVERY DAY AT BEDTIME meclizine 12.5 mg tablet 12.5 mg PO BID Patient Comments: TAKE 1 TABLET BY MOUTH TWICE DAILY NEEDED FOR VERTIGO ferrous sulfate [FeroSul] 325 mg (65 mg iron) tablet 325 mg PO BID Patient Comments: TAKE 1 TABLET BY MOUTH TWICE DAILY BEFORE MEAL(S) calcitriol 0.5 mcg capsule 0.5 mcg PO BID Patient Comments: TAKE 1 CAPSULE BY MOUTH TWICE DAILY gabapentin 100 mg capsule 100 mg PO HS Patient Comments: TAKE 1 CAPSULE BY MOUTH ONCE DAILY AT NIGHT FOR PAIN Humulin R Regular U-100 Insuln 100 unit/mL solution 5 unit subcut TIDWM Patient Comments: INJECT 5 UNITS SUBCUTANEOUSLY THREE TIMES DAILY BEFORE MEAL(S) insulin glargine U-300 conc [Toujeo SoloStar U-300 Insulin] 300 unit/mL (1.5 mL) insulin pen 10 unit SUBCUT QDAY Patient Comments: INJECT 10 UNITS SUBCUTANEOUSLY ONCE DAILY IN THE MORNING FOR DIABETES Referrals: Shelly Quinones FNP [Primary Care Provider] - Patient/Caregiver Discharge Instructions Education Materials: Cognitive Impairment Mild, Dementia Caregiver Tips Print Language: Armenian Stand Alone Forms: Yanna Award Info., Patient Portal Info Letter Discharge Order Discharge Orders: Discharge (Routine); Ordered 02/09/24 Ordered By: Azul Torre Quality Discharge Quality Measures VTE prophylaxis
== END 2024-02-09 15:14 | disposition hospice, home (50) | DRG 291 ==
LOC: SERX 02-02 21:33 → SERHOLD 02-02 22:55 → S3NX 02-03 01:47 → S3SX 02-03 08:23
PROVIDERS: Emergency Medicine; Student in an Organized Health Care Education/Training Program; Admitting Provider Student in an Organized Health Care Education/Training Program; Emergency Provider Emergency Medicine; PCP Registered Nurse Community Health; Visit Provider Internal Medicine
DX: I13.2 Hypertensive heart and chronic kidney disease with heart failure and with stage 5 chronic kidney disease, or end stage renal disease (principal); G92.8 Other toxic encephalopathy; N18.6 End stage renal disease; N17.9 Acute kidney failure, unspecified; I16.1 Hypertensive emergency; I67.4 Hypertensive encephalopathy; E11.65 Type 2 diabetes mellitus with hyperglycemia; K21.9 Gastro-esophageal reflux disease without esophagitis; E11.22 Type 2 diabetes mellitus with diabetic chronic kidney disease; I50.9 Heart failure, unspecified; Z60.3 Acculturation difficulty; E83.52 Hypercalcemia; G93.89 Other specified disorders of brain; F03.90 Unspecified dementia, unspecified severity, without behavioral disturbance, psychotic disturbance, mood disturbance, and anxiety; E86.0 Dehydration; Z66 Do not resuscitate; N40.0 Benign prostatic hyperplasia without lower urinary tract symptoms; E78.5 Hyperlipidemia, unspecified
CPT/HCPCS: 36415; 70450; 71045; 73562; 80053; 80061; 80307; 81001; 82010; 82140; 82306; 82803; 83036; 83605; 83735; 83880; 83970; 84100; 84443; 84484; 85025; 85610; 85730; 87811; 92526; 92610; 93005; 93225; 96361; 96372; 96374; 99285; J0360; J1643; J1815; J3475; J7030; A9270; J1644